=== PATIENT | female | born 1990 ===

== ENCOUNTER 2021-02-23 08:45 | Outpatient (REF) | payer OTHER, SELFPAY ==
--- NOTE | ~2021-02-23 | XR_ITS ---
EXAMINATION: XR CHEST CLINICAL INFORMATION: Encounter for preprocedural examination. COMPARISON: None TECHNIQUE: 2 views of the chest were obtained. FINDINGS: The lungs are well expanded. There is no focal consolidation, edema, or effusion. No pneumothorax. The cardiomediastinal silhouette is within normal limits. No acute osseous abnormality. There is a rounded 2.3 cm density in the left upper quadrant of the abdomen, with posterior positioning. This corresponds to the previously seen renal calculus. XR/XR chest 2V IMPRESSION: Clear lungs. Prominent left renal calculus.
--- NOTE | 2021-02-23 08:53 | ECG_ITS ---
Test Reason : PRE OP Blood Pressure : / mmHG Vent. Rate : 131 BPM Atrial Rate : 131 BPM P-R Int : 150 ms QRS Dur : 070 ms QT Int : 282 ms P-R-T Axes : 060 027 030 degrees QTc Int : 416 ms Sinus tachycardia Nonspecific ST abnormality Abnormal ECG Compared to previous EKG of 24-Jun-2012 No significant changes seen Referred By: Deepa Booth Electronically Signed By:MICHELLE CASTANON MD
[2021-02-23 09:46] LABS: MANUAL DIFF FLAG NO
[2021-02-23 09:53] LABS: Basophils Absolute Auto 0.1 X10*3/uL (0.0-0.2); Basophils Percent Auto 0.4 % (0-2); Eosinophils Absolute Auto 0.1 X10*3/uL (0.0-0.4); Eosinophils Percent Auto 0.4 % (0-4); Hematocrit 39.3 % (37-47); Imm Gran Abs Auto 0.07 X10*3/uL (0.00-0.03); Imm Gran Pct Auto 0.5 % (0.0-0.4); Lymphocytes Absolute Auto 1.6 X10*3/uL (1.2-4.9); Lymphocytes Percent Auto 11.8 % (20-40); Mean Corpuscular HGB Conc 33.1 g/dl (31.0-35.0); Mean Corpuscular Hemoglobin 30.4 pg (27.0-33.0); Mean Corpuscular Volume 91.8 fL (80-98); Mean Platelet Volume 9.5 fL (9.4-12.3); Monocytes Absolute Auto 0.6 X10*3/uL (0.1-1.2); Monocytes Percent Auto 4.2 % (2-11); Neutrophils Absolute Auto 11.1 X10*3/uL (2.0-8.3); Neutrophils Percent Auto 82.7 % (45-73); Platelet Count 391 X10*3/uL (160-400); Red Blood Count 4.28 X10*6/uL (4.20-5.50); Red Cell Distribution Width 12.2 % (11.0-16.0); White Blood Count 13.4 X10*3/uL (4.8-10.8)
[2021-02-23 09:59] LABS: INTERNATIONAL NORM RATIO 1.1 (0.9-1.1); Prothrombin Time 12.8 SEC (9.9-13.0)
[2021-02-23 10:02] LABS: Partial Thromboplastin Time 39.4 SEC (24.1-38.0)
[2021-02-23 10:04] LABS: Glucose Urine UA NEG (NEG); Leukocyte Esterase Urine TRACE (NEG); Nitrite Urine POS (NEG); UACC Culture Trigger YES; Urine Blood 1+ (NEG); Urine Ketones NEG (NEG); Urine Protein TRACE MG/DL (NEG-TRACE)
[2021-02-23 10:06] LABS: Appearance Urine HAZY; Color Urine YELLOW
[2021-02-23 10:10] LABS: Amorphous Sediment Urine 2+ /LPF; Bacteria Urine 1+ /LPF; RBC Urine 0-2 /HPF (0); Squamous Epithelial Cell Urine 2+ /LPF
[2021-02-23 10:28] LABS: Alanine Aminotransferase 8 U/L (0-31); Albumin Level 4.5 g/dL (3.5-5.0); Alkaline Phosphatase 69 U/L (39-117); Anion Gap 12 (12-20); Aspartate Amino Transferase 14 U/L (5-31); Bilirubin Total 1.1 mg/dL (0.0-1.0); Blood Urea Nitrogen 10 mg/dL (9-16); Calcium 9.8 mg/dL (8.4-10.2); Carbon Dioxide 26 mmol/L (22-29); Chloride 106 mmol/L (96-108); Estimated Glomerular Filt Rate > 60; Glucose Fasting 97 mg/dL (60-99); Potassium 4.3 mmol/L (3.3-5.1); Sodium 140 mmol/L (135-145); Total Protein 7.6 g/dL (6.5-8.0)
[2021-02-23 10:29] LABS: HCG Quantitative < 2 mIU/mL
== END 2021-02-23 08:46 | disposition home or self-care (01) ==
LOC: HO.LAB 08:45
PROVIDERS: PCP Internal Medicine; Visit Provider Internal Medicine
DX: Z01.818 Encounter for other preprocedural examination (principal); R30.0 Dysuria; N20.0 Calculus of kidney
CPT/HCPCS: 36415; 71046; 80053; 81001; 81003; 84702; 85025; 85610; 85730; 87086; 93005

== ENCOUNTER 2023-03-27 09:58 | Outpatient (REF) | payer OTHER, SELFPAY ==
[2023-03-27 11:18] LABS: Alanine Aminotransferase 16 U/L (0-31); Alkaline Phosphatase 76 U/L (39-117); Anion Gap 10 (12-20); Aspartate Amino Transferase 19 U/L (5-31); Bilirubin Total 0.7 mg/dL (0.0-1.0); Blood Urea Nitrogen 7 mg/dL (9-16); Calcium 9.4 mg/dL (8.4-10.2); Carbon Dioxide 27 mmol/L (22-29); Chloride 105 mmol/L (96-108); Cholesterol 180 mg/dL (<200); Estimated Glomerular Filt Rate > 60; Glucose Fasting 90 mg/dL (60-99); HDL Cholesterol 56 mg/dL (>40); LDL Cholesterol Calculated 105 mg/dL (<100); Potassium 3.8 mmol/L (3.3-5.1); Sodium 138 mmol/L (135-145); Total Protein 7.3 g/dL (6.5-8.0); Triglycerides 99 mg/dL (<150)
== END 2023-03-27 09:59 | disposition home or self-care (01) ==
LOC: HO.LAB 09:58
PROVIDERS: PCP Internal Medicine; Visit Provider Internal Medicine
DX: Z00.00 Encounter for general adult medical examination without abnormal findings (principal)
CPT/HCPCS: 36415; 80053; 80061

== ENCOUNTER 2023-07-05 10:53 | Outpatient (REF) | payer OTHER, SELFPAY ==
[2023-07-05 12:24] LABS: Appearance Urine Turbid; Color Urine Yellow; Glucose Urine UA Negative (Negative); Leukocyte Esterase Urine Large (3+) (Negative); Nitrite Urine Positive (Negative); PH 6.5 (5.0-9.0); UMIC TRIGGER UACC YES; Urine Blood Moderate (2+) (Negative); Urine Ketones Negative (Negative); Urine Protein 30 (1+) mg/dL (Neg-Trace)
[2023-07-05 12:43] LABS: Bacteria Urine 3+ (None Seen); Hyaline Casts Urine 0-2 /LPF (0-2); RBC Urine 0-2 /HPF (0-2); UACC Culture Trigger YES; WBC Urine 21-50 /HPF (0-5)
== END 2023-07-05 10:54 | disposition home or self-care (01) ==
LOC: HO.LAB 10:53
PROVIDERS: PCP Internal Medicine; Visit Provider Internal Medicine
DX: R39.9 Unspecified symptoms and signs involving the genitourinary system (principal)
CPT/HCPCS: 81001; 87086; 87088; 87186

== ENCOUNTER 2023-07-10 14:56 | Outpatient (AMB) | payer OTHER, SELFPAY ==
[2023-07-10 14:59] VITALS: BP 116/70; PULSE 123; TEMP 37.8; O2SAT 100; BMI 22.8
--- NOTE | 2023-07-10 14:59 | AM.OFFWIN_ITS ---
Intake Vital Signs 07/10/23 14:59 Height 4 ft 11 in Weight 51.256 kg BMI 22.8 BP 116/70 Blood Pressure Location Lt brachial Position Sitting Pulse 123 H Temp 100.0 F Temp Source Oral Pulse Oximetry (%) 100 Intake Visit Reasons: EP Lft rib pain radiates to back chills Intake Note: pt is here today for lft rib pain radiates to back, chills started 2 week ago staurday had a fever Patient Tobacco Use Status: Never used Tobacco Allergies kiwi [KIWI] Allergy (Intermediate, Verified 07/10/23 15:06) THROAT ITCHING Do you need a note to return to daycare/school/sports/work: Yes HPI HPI Comments History of Present Illness Details [id number] 32-year-old female presents with complai nts of left-sided flank pain, fevers, cloudy urine with sediment, ongoing for the past 2 weeks, currently finishing up Macrobid, has a few doses left, but despite this symptoms are not improving. Reports fevers home T-max of a 100 degrees. Initially here patient had a temperature of 97.4 degrees oral temperature however 100.0 degrees F. Left-sided CVA tenderness tachycardia ( 120s) febrile. History and physical exam concerning for possible pyelonephritis versus obstructing uropathy versus kidney stone versus UTI. Unlikely acute abdomen. Culture w/ s. aureus Plan at this time urine. Patient will likely need IV antibiotics she [facility] Medical History Pre-op evaluation Renal calculi Surgical History Tubal ligation status History of Family History Mother No problems noted. Father No problems noted. Social History Housing: Apartment Alcohol intake: never Patient Tobacco Use Status: Never used Tobacco e-Cigarette/Vaping Use: Never Used Second Hand Smoke Exposure: No service: No Current occupational status: unemployed Cognitive needs: No Hearing needs: No Vision needs: No Review of Systems Const Details: Constitutional : No Weight loss, No Fever, No Chills, No Fatigue, No Malaise ENT/Mouth : No sore throat, No Rhinorrhea Eyes: No Eye Pain, No Swelling, No Redness Cardiovascular : No Chest Pain, No SOB, No Dyspnea on Exertion, No Orthopnea, No Edema, No Palpitations Respiratory : No Cough, No Sputum, No Wheezing Gastrointestinal : No Nausea, No Vomiting, No Diarrhea, No Constipation, No abdominal Pain, No Hematochezia, No Melena Genitourinary : No Dysuria, No Urinary Frequency, No Hematuria, Musculoskeletal : No joint pain, No Myalgias, No Joint Swelling, + flank pain Skin : No Skin Lesions, No rash Neuro : No Weakness, No Numbness, No Dizziness, No Headache Psych : No Anxiety/Panic, No Depression All other systems reviewed and are negative All systems reviewed & are unremarkable except as noted in HPI and below Physical Exam Vital Signs: Last Vital Signs Temp 97.4 F 07/10/23 14:59 Pulse 123 H 07/10/23 14:59 BP 116/70 07/10/23 14:59 Pulse Ox 100 07/10/23 14:59 BMI result Body Mass Index 22.8 Repeat temp 100.0F tacycardic 123 Appearance: Alert.? Oriented X3.? No acute distress.? Head: Normocephalic, atraumatic, no step-offs or deformities Eyes: Pupils equal, round and reactive to light.? ENT: Pharynx normal.? Neck: Normal inspection.? Neck supple.? CVS: + tachycardia .? Pulses normal.? Respiratory: No respiratory distress.? Breath sounds normal.? Abdomen: Soft and nontender.? Skin: Skin warm and dry.? Normal skin color.? Normal skin turgor.? Extremities: No lower extremity edema.? No calf ttp. 5/5 strength to bilateral upper and lower extremities Back: No midline tenderness, no C-spine tenderness, full range of motion, + left sided CVA tenderness Neuro: Oriented X 3.? No motor deficit.? No sensory deficit. CN 2-12 intact Results AMB Urinalysis, Automated UA Leukoctes 500 Isaías/uL Last Edit by Zeke Hernandez CMA on 07/10/23 15:3 3 UA Nitrite Negative Last Edit by Zeke Hernandez CMA on 07/10/23 15:33 UA Urobilinogen 0.2 mg/dL Last Edit by Zeke Hernandez CMA on 07/10/23 15 :33 UA Protein 0 mg/dL Last Edit by Zeke Hernandez CMA on 07/10/23 15:33 UA pH 6.0 Last Edit by Zeke Hernandez CMA on 07/10/23 15:33 UA Blood 25 Daniel/uL Last Edit by Zeke Hernandez CMA on 07/10/23 15:33 UA Specific [place] 1.005 Last Edit by Zeke Hernandez CMA on 07/10/23 15:33 UA Ketone Negative Last Edit by Zeke Hernandez CMA on 07/10/23 15:33 UA Bilirubin 0 mg/dL Last Edit by Zeke Hernandze CMA on 07/10/23 15:33 UA Glucose 0 mg/dL Last Edit by Zeke Hernandez CMA on 07/10/23 15:33 Results Reviewed Results Reviewed: Laboratory Last Values Urine pH (Auto) 6.0 07/10/23 15:33 Specific [place] (Auto) 1.005 07/10/23 15:33 Urine Protein (Auto) 0 mg/dL 07/10/23 15:33 Glucose (UA)(Auto) 0 mg/dL 07/10/23 15:33 Urine Ketones (Auto) Negative 07/10/23 15:33 Urine Blood (Auto) 25 Daniel/uL 07/10/23 15:33 Urine Nitrite (Auto) Negative 07/10/23 15:33 Urine Bilirubin (Auto) 0 mg/dL 07/10/23 15:33 Urine Urobilinogen (Auto) 0.2 mg/dL 07/10/23 15:33 Leukocyte Esterase (Auto) 500 Isaías/uL 07/10/23 15:33 Assessment & Plan Assessment & Plan (1) Pyelonephritis: Code(s): N12 - Tubulo-interstitial nephritis, not specified as acute or chronic Plan [facility] [place] triage provider Jasmine avery Orders: Orders AMB Urinalysis Automated Today Z13.9 - Encounter for screening, unspecified Coding Level of Care Code Est Pt Level 3 (49230) Diagnoses Pyelonephritis N12
== END 2023-07-10 15:54 | disposition home or self-care (01) ==
PROVIDERS: PCP Internal Medicine; Visit Provider Physician Assistant
DX: N12 Tubulo-interstitial nephritis, not specified as acute or chronic (principal); Z13.9 Encounter for screening, unspecified
CPT/HCPCS: 81003; 99213

== ENCOUNTER 2023-07-10 16:29 | Emergency (ER) | payer OTHER, SELFPAY ==
--- NOTE | ~2023-07-10 | CT_ITS ---
EXAMINATION: CT ABDOMEN AND PELVIS WITHOUT CONTRAST CLINICAL INFORMATION: Left flank pain COMPARISON: Previous CT of the abdomen and pelvis from 2012 TECHNIQUE: Multidetector volumetric imaging was performed from the superior aspect of the liver through the pubic symphysis. Sagittal and coronal reformatted images were obtained on the technologist's workstation. This CT examination was performed using dose optimization techniques as appropriate, variously including the following: *Automated exposure control *Adjustment of mA and/or kV according to patient size (this includes techniques or standardized protocols for targeted exams where dose is matched to indication/reason for exam; i.e. extremities or head) *Use of iterative reconstruction technique DLP: 325 mGy-cm FINDINGS: LUNG BASES: The visualized lung bases are unremarkable. LIVER, GALLBLADDER, AND BILIARY TREE: The liver is normal in size, shape, and attenuation. No focal hepatic lesion or biliary ductal dilatation is present. The gallbladder is unremarkable with no evidence of radiopaque gallstones, gallbladder wall thickening, or obvious pericholecystic inflammatory changes. PANCREAS: Unremarkable. SPLEEN: Unremarkable. ADRENAL GLANDS: Unremarkable. KIDNEYS AND URETERS: There is a 3 x 4 cm laminated stone in the central left kidney moderate left hydronephrosis. There are small stones bilateral lower poles. There is mild stranding of the left perinephric fat. Probably due to backflow of urine and obstruction. Differential would be infection. BLADDER: Unremarkable. GASTROINTESTINAL TRACT: The small and large bowel are unremarkable. The appendix is not seen. The stomach is unremarkable.. ABDOMINAL WALL: No significant hernia is appreciated. LYMPH NODES: Normal. VASCULAR: Unremarkable. PELVIC VISCERA: Uterus and ovaries are unremarkable. There is trace fluid in the pelvis. OSSEOUS STRUCTURES: Unremarkable. CT/CT abdomen pelvis wo IV con IMPRESSION: Large staghorn stone in the left renal pelvis and moderate left hydronephrosis. Mild left perinephric fat stranding. This may represent backflow of urine secondary to obstruction. Differential would include infection. Tiny bilateral nonobstructing lower pole renal stones. Fleischner guidelines were followed.
--- NOTE | 2023-07-10 16:56 | ED_ITS ---
HPI - General Adult General Chief complaint: General Medical Stated complaint: lower back and abd pain sent from urgent care Time Seen by Provider: 07/10/23 17:11 Source: patient Mode of arrival: ambulatory Limitations: no limitations History of Present Illness HPI narrative: Patient is a 32-year-old female with history of renal calculi presenting to the emergency department from urgent care with ongoing left flank pain and left lower quadrant abdominal pain, fever, cloudy urine for the past 2 weeks. Tmax of 100 at home. Patient was recently treated for UTI with Macrobid which she reports she has been taking as prescribed. States symptoms feel similar to previous renal calculi. Denies nausea, vomiting, diarrhea. MD complaint: flank pain, fever Onset (ago): week(s) Location: abdomen and left (flank) Severity: severe Severity scale (1-10): 7 Quality: sharp Pain Consistency: colicky Relieving factors: none Exacerbating factors: none Associated symptoms: fever/chills Treatments prior to arrival: other (macrobid) Related Data Previous Rx's Medication Instructions Recorded mirtazapine 15 mg tablet (Remeron) 15 mg PO BEDTIME 90 days #90 tabs 06/25/23 tamsulosin 0.4 mg capsule 0.4 mg PO DAILY 7 days #7 caps 07/01/23 nitrofurantoin macrocrystal 100 mg 100 mg PO BID 7 days #14 caps 07/06/23 capsule sulfamethoxazole 800 1 tab PO BID 14 days #28 tabs 07/10/23 mg-trimethoprim 160 mg tablet (Bactrim DS) Allergies Allergy/AdvReac Type Severity Reaction Status Date / Time kiwi [KIWI] Allergy Intermediate THROAT Verified 07/10/23 17:01 ITCHING Review of Systems 2 Review of Systems: As per HPI. Yes all other systems are reviewed and are negative Constitutional: Constitutional: Reports as per HPI [facility] Past Medical History Medical History Pre-op evaluation Renal calculi Surgical History Tubal ligation status History of Family History Family History Mother No problems noted. Father No problems noted. Social History Social History Housing: Apartment Alcohol intake: never Patient Tobacco Use Status: Never used Tobacco Smoked in Last 30 Days: No e-Cigarette/Vaping Use: Never Used Second Hand Smoke Exposure: No Use of substances other than those prescribed or required for medical reasons: No Advance Directives: No Advance Directives Information Provided: No Patient : No service: No Current occupational status: unemployed Cognitive needs: No Hearing needs: No Vision needs: No Physical Exam ED Vital Signs: Vital Signs - 24 hr 07/10/23 16:57 07/10/23 19:22 07/10/23 21:09 Temperature 99.3 F 99.1 F 99.3 F Pulse Rate 129 H 125 H 120 H Respiratory Rate 18 16 18 Blood Pressure 156/88 H 139/82 140/80 H Pulse Oximetry 100 100 100 Oxygen Delivery Method Room Air Room Air Room Air 07/10/23 21:56 Temperature Pulse Rate 104 H Respiratory Rate Blood Pressure Pulse Oximetry Oxygen Delivery Method BMI result Body Mass Index 634.0 Vital signs have been reviewed and appear to be correct. Blood pressure elevated. Heart rate tachycardic. Respiratory rate normal. Temperature normal. Oxygen saturation normal. Const General: cooperative, healthy appearing and no acute distress Orientation/consciousness: oriented to person, oriented to place, oriented to time and patient oriented x3 Limitations: no limitations HENMT Head: Yes normocephalic and Yes atraumatic Ears: external ears normal General nose exam: Normal external nose present Face and sinus: Yes face symmetric Mouth: oropharynx normal and moist mucous membranes Throat: Yes uvula midline Eyes Pupils: Equal, round and reactive pupils present Neck Neck: Yes normal visual inspection and Yes supple Resp Effort & Inspection: normal respiratory effort and able to speak in complete sentences Auscultation: clear to auscultation bilaterally Cardio Rate: regular rate Rhythm: regular rhythm Heart sounds: S1 normal heart sound present and S2 normal heart sound present GI Palpation (GI): Soft to palpation, Tenderness to palpation present (GI) in the LLQ, no guarding and No Rebound tenderness present Auscultation: normoactive bowel sounds General: Yes CVA tenderness on the left Back/Spine/Pelvis Back: CVA tenderness Skin General skin exam: elasticity normal and turgor normal Neuro General: oriented to person, oriented to place, oriented to time, patient oriented x3, moves all extremities, no focal motor deficits and CN's II-XI intact bilaterally Cranial nerves: Yes Equal, round and reactive pupils present Cognition (Neuro): normal cognition Extrem General: Yes full ROM, Yes no pedal edema and Yes no calf tenderness Psych Mental Status: mental status grossly normal Affect: normal affect Thought process: Normal thought process present Course Course Course Narrative: This is an RME: Additional HPI, ROS, PE not included below will be deferred to primary provider. 32-year-old female presents with complaints of left-sided flank pain, fevers, cloudy urine with sediment, ongoing for the past 2 weeks, currently finishing up Macrobid, has a few doses left, but despite this symptoms are not improving. Reports fevers home T-max of a 100 degrees. Left-sided CVA tenderness and tachycardic in the 120s. Patient brought back to the main emergency department. Temperature 99.3? however patient has a mint in her mouth, unsure of accuracy of this. Received expect regarding patient concern for pyelonephritis, obstructive uropathy versus kidney stones versus UTI, Plan: Labs, blood cultures, lactic Medications Administered Discontinued Medications Generic Name Dose Route Start Last Admin Trade Name Freq PRN Reason Stop Dose Admin Sodium Chloride 1,000 mls @ 999 mls/hr 07/10/23 17:15 07/10/23 19:44 Ns IV 07/10/23 18:15 Infused .Q1H1M SHAILESH Infusion Ketorolac Tromethamine 15 mg 07/10/23 19:01 07/10/23 19:44 Ketorolac Tromethamine 15 Mg/Ml Vial IVPUSH 07/10/23 19:02 15 mg ONCE ONE Administration Medical Decision Making Medical Decision Making [facility] [place] Narrative: 17:15 Patient is a 32-year-old female with history of renal calculi presenting to the emergency department from urgent care with ongoing left flank pain and left lower quadrant abdominal pain, fever, cloudy urine for the past 2 weeks. On exam patient is awake, A+Ox3, tachycardic, BP elevated, afebrile, normal neurological exam without focal deficits, physical exam findings as above. Patient attributing her tachycardia to anxiety about being in the hospital, however, this raises concern for infection. Given reported symptoms and physical exam findings, initial differential includes pyelonephritis, renal/ureteral calculi, obstructive uropathy. Do not suspect sepsis at this time. Labs notable for mild leukocytosis, mild anemia, normal lactic. No evidence of LAUREN. CT notable for large staghorn stone in left renal pelvis with moderate left hydronephrosis, mild left perinephric fat stranding. My interpretation is in agreement with the radiologist's interpretation. Results discussed with patient and admission offered which patient politely declined. Will treat for pyelonephritis with Bactrim DS, as most recent urine culture from 07/05 was positive for staph aureus susceptible to Bactrim. Strict return precautions discussed at bedside. Will refer to urology for further management of calculi. Patient verbalized understanding of and agreement with plan. Differential Diagnosis Differential Diagnoses: The differential diagnosis associated with the presentation includes As per [facility] [place]. Admission/Observation Consideration of admission/observation: Escalation of care including admission/observation considered Offered, patient declined Lab Data [facility] [place] Lab Attestation statement: I reviewed the patient's lab results. As per [facility] [place] 07/10/23 17:28 07/10/23 17:28 Labs: Lab Results 07/10/23 07/10/23 Range/Units 17:28 17:44 WBC 13.2 H (4.8-10.8) X10*3/uL RBC 4.03 L (4.20-5.50) X10*6/uL Hgb 11.8 L (12.0-16.0) g/dl Hct 35.5 L (37.0-47.0) % MCV 88.1 (80.0-98.0) fL MCH 29.3 (27.0-33.0) pg MCHC 33.2 (31.0-35.0) g/dl RDW 11.7 (11.0-16.0) % Plt Count 559 H (160-400) X10*3/uL MPV 9.2 L (9.4-12.3) fL Immature Gran % (Auto) 1.0 H (0.0-0.4) % Neut % (Auto) 82.5 H (45-73) % Lymph % (Auto) 11.7 L (20-40) % [place] % (Auto) 3.9 (2-11) % Eos % (Auto) 0.4 (0-4) % Baso % (Auto) 0.5 (0-2) % Lymph # (Auto) 1.5 (1.2-4.9) X10*3/uL [place] # (Auto) 0.5 (0.1-1.2) X10*3/uL Eos # (Auto) 0.1 (0.0-0.4) X10*3/uL Baso # (Auto) 0.1 (0.0-0.2) X10*3/uL Abs Immat Gran (auto) 0.13 H (0.00-0.03) X10*3/uL Absolute Neuts (auto) 10.9 H (2.0-8.3) x10*3/uL Absolute Nucleated RBC 0.000 (0.0-0.012) X10*3/uL Nucleated RBC % (auto) 0.0 (0.0-0.2) /100WBC Sodium 138 (135-145) mmol/L Potassium 3.7 (3.3-5.1) mmol/L Chloride 105 (96-108) mmol/L Carbon Dioxide 25 (22-29) mmol/L Anion Gap 12 (12-20) BUN 7 L (9-16) mg/dL Creatinine 0.71 (0.5-1.4) mg/dL Estim Creat Clear Calc -36.5 Estimated GFR > 60 Random Glucose 101 (60-115) mg/dL Lactic Acid 1.0 (0.5-2.0) mmol/L Calcium 9.8 (8.4-10.2) mg/dL Total Bilirubin 0.5 (0.0-1.0) mg/dL Direct Bilirubin 0.2 (0.0-0.5) mg/dL AST 17 (5-31) U/L ALT 18 (0-31) U/L Alkaline Phosphatase 93 (39-117) U/L Total Protein 8.9 H (6.5-8.0) g/dL Albumin 4.3 (3.5-5.0) g/dL Lipase 15 (8-78) U/L Beta HCG, Quant < 2 mIU/mL Urine Color Yellow Urine Appearance Clear Urine pH 6.5 (5.0-9.0) Ur Specific [place] <= 1.005 (1.005-1.025) Urine Protein Negative (Neg-Trace) mg/dL Urine Glucose (UA) Negative (Negative) mg/dL Urine Ketones Negative (Negative) mg/dL Urine Blood Small (1+) H (Negative) Urine Nitrite Negative (Negative) Ur Leukocyte Esterase Large (3+) H (Negative) Urine RBC 0-2 (0-2) /HPF Urine WBC 0-5 (0-5) /HPF Ur Squamous Epith Cells 0-2 (0-2) /HPF Urine Bacteria None Seen (None Seen) Hyaline Casts 0-2 (0-2) /LPF Independent Interpretation I performed an independent interpretation of an: CT Scan Interpretation: left stone in left renal pelvis with moderate left hydronephrosis and mild perinephric stranding Radiology Impression Discussion of test interpretation with radiology: I have reviewed the radiologist's reading. Radiologist Impression: CT/CT abdomen pelvis wo IV con IMPRESSION: Large staghorn stone in the left renal pelvis and moderate left hydronephrosis. Mild left perinephric fat stranding. This may represent backflow of urine secondary to obstruction. Differential would include infection. Tiny bilateral nonobstructing lower pole renal stones. External Record Review External record reviewed: Inpatient record, Office record and Outpatient record Prescription Management I considered prescription management with: Antibiotic Discharge Plan Discharge Clinical Impression: Pyelonephritis, Renal calculi Patient Disposition: Home, Self-Care Instructions: Kidney Stones (ED), Renal Colic (ED), Kidney Infection (ED) Additional Instructions: Usted fue evaluado en el departamento de emergencias por dolor en el flanco jeronimo. Pruitt tomograf?a computarizada mostr? evidencia de un c?lculo liliana en pruitt ri??n jeronimo. Est? recibiendo tratamiento por chris infecci?n renal con antibi?ticos; complete el tratamiento completo seg?n lo prescrito. Lo derivan a Urolog?a para un mayor tratamiento de jeff c?lculo renal. Llame a pruitt consultorio ma?callie por la ma?callie a primera hora para programar chris haresh esta semana. Regrese al departamento de emergencias si presenta un dolor que empeora, v?mitos persistentes, fiebre de 100,4? o m?s, incapacidad para orinar o cualquier otro s?ntoma preocupante. Prescriptions: New sulfamethoxazole-trimethoprim [Bactrim DS] 800-160 mg tablet 1 tab PO BID 14 Days Qty: 28 0RF No Action mirtazapine [Remeron] 15 mg tablet 15 mg PO BEDTIME 90 Days Qty: 90 0RF tamsulosin 0.4 mg capsule 0.4 mg PO DAILY 7 Days Qty: 7 0RF nitrofurantoin macrocrystal 100 mg capsule 100 mg PO BID 7 Days Qty: 14 0RF Rx Instructions: must administer with a meal/food Referrals: [facility] [place] [facility] [Provider Group] Print Language: Brazilian
[2023-07-10 16:57] VITALS: BP 156/88; PULSE 129; RESP 18; TEMP 37.4; O2SAT 100; BMI 634.0
[2023-07-10 17:40] LABS: MANUAL DIFF FLAG NO
[2023-07-10] MEDS: 0.9 % Sodium Chloride 1,000 ML 999 ML IV (17:42)
[2023-07-10 17:54] LABS: Appearance Urine Clear; Color Urine Yellow; Glucose Urine UA Negative (Negative); Leukocyte Esterase Urine Large (3+) (Negative); Nitrite Urine Negative (Negative); PH 6.5 (5.0-9.0); Specific Gravity - Urine <= 1.005 (1.005-1.025); UMIC TRIGGER UACC YES; Urine Blood Small (1+) (Negative); Urine Ketones Negative (Negative); Urine Protein Negative (Neg-Trace)
[2023-07-10 17:59] LABS: Basophils Absolute Auto 0.1 X10*3/uL (0.0-0.2); Basophils Percent Auto 0.5 % (0-2); Eosinophils Absolute Auto 0.1 X10*3/uL (0.0-0.4); Eosinophils Percent Auto 0.4 % (0-4); Hematocrit 35.5 % (37.0-47.0); Hemoglobin 11.8 g/dl (12.0-16.0); Imm Gran Abs Auto 0.13 X10*3/uL (0.00-0.03); Lymphocytes Absolute Auto 1.5 X10*3/uL (1.2-4.9); Lymphocytes Percent Auto 11.7 % (20-40); Mean Corpuscular HGB Conc 33.2 g/dl (31.0-35.0); Mean Corpuscular Hemoglobin 29.3 pg (27.0-33.0); Mean Corpuscular Volume 88.1 fL (80.0-98.0); Mean Platelet Volume 9.2 fL (9.4-12.3); Monocytes Absolute Auto 0.5 X10*3/uL (0.1-1.2); Monocytes Percent Auto 3.9 % (2-11); Neutrophils Absolute Auto 10.9 x10*3/uL (2.0-8.3); Neutrophils Percent Auto 82.5 % (45-73); Platelet Count 559 X10*3/uL (160-400); Red Blood Count 4.03 X10*6/uL (4.20-5.50); Red Cell Distribution Width 11.7 % (11.0-16.0); White Blood Count 13.2 X10*3/uL (4.8-10.8)
[2023-07-10 18:25] LABS: Bacteria Urine None Seen (None Seen); Hyaline Casts Urine 0-2 /LPF (0-2); RBC Urine 0-2 /HPF (0-2); Squamous Epithelial Cell Urine 0-2 /HPF (0-2); UACC Culture Trigger YES; WBC Urine 0-5 /HPF (0-5)
[2023-07-10 18:26] LABS: Alanine Aminotransferase 18 U/L (0-31); Albumin Level 4.3 g/dL (3.5-5.0); Alkaline Phosphatase 93 U/L (39-117); Anion Gap 12 (12-20); Aspartate Amino Transferase 17 U/L (5-31); Bilirubin Direct 0.2 mg/dL (0.0-0.5); Bilirubin Total 0.5 mg/dL (0.0-1.0); Blood Urea Nitrogen 7 mg/dL (9-16); Calcium 9.8 mg/dL (8.4-10.2); Carbon Dioxide 25 mmol/L (22-29); Chloride 105 mmol/L (96-108); Creatinine Clr Calc Pharmacy -36.5; Estimated Glomerular Filt Rate > 60; Glucose Random 101 mg/dL (60-115); Lipase 15 U/L (8-78); Potassium 3.7 mmol/L (3.3-5.1); Sodium 138 mmol/L (135-145); Total Protein 8.9 g/dL (6.5-8.0)
[2023-07-10 18:29] LABS: HCG Quantitative < 2 mIU/mL
[2023-07-10 19:22] VITALS: BP 139/82; PULSE 125; RESP 16; TEMP 37.3; O2SAT 100
--- NOTE | 2023-07-10 19:33 | MHC.EDTECH ---
This tech resumed care at 1900. PT states she is having some pain. PT vitals are taken. Tech notes elevated bp. LEO Perez is made aware of pulse, BP and pain levels.
[2023-07-10] MEDS: Ketorolac Tromethamine 15 MG/ML VIAL IVPUSH (19:44)
[2023-07-10 21:09] VITALS: BP 140/80; PULSE 120; RESP 18; TEMP 37.4; O2SAT 100
[2023-07-10 21:56] VITALS: PULSE 104
== END 2023-07-10 22:34 | disposition home or self-care (01) ==
PROVIDERS: Physician Assistant Medical; Emergency Provider Emergency Medicine; PCP Internal Medicine
DX: N13.6 Pyonephrosis (principal)
CPT/HCPCS: 36415; 74176; 80048; 80076; 81001; 83605; 83690; 84702; 85025; 87040; 87086; 96361; 96374; 99284; J1885

== ENCOUNTER 2023-07-18 10:54 | Outpatient (AMB) | payer OTHER, SELFPAY ==
[2023-07-18 10:56] VITALS: BP 112/90; PULSE 114; O2SAT 99; BMI 21.6
--- NOTE | 2023-07-18 10:56 | A.OFFPC_ITS ---
Vital Signs 07/18/23 10:56 Height 4 ft 11 in Weight 107 lb 0.4 oz BMI 21.6 BP 112/90 H Blood Pressure Location Lt brachial Position Sitting Pulse 114 H Pulse Source Palpation Pulse Oximetry (%) 99 Oxygen Delivery Method Room Air Intake Visit Reasons: [facility] 07/10 kidney stone pain Intake Note: Patient is here to follow-up after a visit the emergency department at [facility] on 07/10/23 for kidney stones Clinical Director Required: No Allergies kiwi [KIWI] Allergy (Intermediate, Verified 07/18/23 11:13) THROAT ITCHING Medication List - Last Reconciled 07/18/23 by Manjula Coulter, [place] mirtazapine (Remeron) 15 mg PO BEDTIME 90 days sulfamethoxazole-trimethoprim 800-160 mg (Bactrim DS) 1 tab PO BID 14 days tamsulosin 0.4 mg PO DAILY 7 days Tobacco use date assessed: 07/18/23 [facility] 07/10 kidney stone pain HPI Details Patient is a 32-year-old female presents today to follow-up after [facility] visit 07/10/2023 due to low back pain. Patient of Dr. Veloz. Discharge diagnosis pyelonephritis, renal calculi. Per ED notes: Patient is a 32-year-old female with history of renal calculi presenting to the emergency department from urgent care with ongoing left flank pain and left lower quadrant abdominal pain, fever, cloudy urine for the past 2 weeks. On exam patient is awake, A+Ox3, tachycardic, BP elevated, afebrile, normal neurological exam without focal deficits, physical exam findings as above. Patient attributing her tachycardia to anxiety about being in the hospital, however, this raises concern for infection. Given reported symptoms and physical exam findings, initial differential includes pyelonephritis, re nal/ureteral calculi, obstructive uropathy. Do not suspect sepsis at this time. Labs notable for mild leukocytosis, mild anemia, normal lactic. No evidence of LAUREN. CT notable for large staghorn stone in left renal pelvis with moderate left hydronephrosis, mild left perinephric fat stranding. My interpretation is in agreement with the radiologist's interpretation. Results discussed with patient and admission offered which patient politely declined. Will treat for pyelonephritis with Bactrim DS, as most recent urine culture from 12/1 was positive for staph aureus susceptible to Bactrim. Strict return precautions discussed at bedside. Will refer to urology for further management of calculi. Patient verbalized understanding of and agreement with plan. Today, patient reports that she possibly passed a small kidney stone yesterday, reports very mild pain today in her left flank that radiates down to her left groin. She reports pain only when feels like stone is coming down. Reports that pain is improving. Currently on antibiotics. Encouraged patient to start tamsulosin that was sent by her PCP. Will place referral to Urology for an evaluation. Patient is a Czech-speaking and JENIFER Poe was helping with interpretation. [facility] Medical History Pre-op evaluation Renal calculi Surgical History Tubal ligation status History of Family History Mother No problems noted. Father No problems noted. Social History Housing: Apartment Alcohol intake: never Patient Tobacco Use Status: Never used Tobacco e-Cigarette/Vaping Use: Never Used Second Hand Smoke Exposure: No service: No Current occupational status: unemployed Cognitive needs: No Hearing needs: No Vision needs: No Questionnaire PHQ-9 Over the last 2 weeks, how often have you been bothered by any of the following problems? 1. Little interest or pleasure in doing things: not at all 2. Feeling down, depressed, or hopeless: not at all 3. Trouble falling or staying asleep, or sleeping too much: more than half the days 4. Feeling tired or having little energy: not at all 5. Poor appetite or overeating: not at all 6. Feeling bad about yourself - or that you are a failure or have let yourself or your family down: not at all 7. Trouble concentrating on things, such as reading the newspaper or watching television: not at all 8. Moving or speaking so slowly that other people could have noticed. Or the opposite - being so fidgety or restless that you have been moving around a lot more than usual: not at all 9. Thoughts that you would be better off or of hurting yourself in some way: not at all Total score: 2 Depression Screening Interpretation: Negative Depression Screening Done: Yes 96143 - PHQ-9 Billing: Yes Source: Developed by Drs. Fredy Newton, Thao Cali, Mak Shoemaker and colleagues, with an educational dinah from [employer]. Thrive Questionnaire Date Thrive assessed: 11/21/22 AUDIT C Alcohol Use Questionnaire (AUDIT-C) 1. How often do you have a drink containing alcohol?: Never 3. How often do you have six or more drinks on one occasion?: Never Total Score: 0 Score Reviewed/Action Taken: No MARLEY-7 AMB Questionnaire MARLEY-7 Date MARLEY - 7 assessed: 01/28/23 Source: Developed by Drs. Fredy Newton, Thao Cali, Mak Shoemaker and colleagues, with an educational dinah from [employer]. Review of Systems Const Denies body aches, Denies chills, Denies fever(s) and Denies headache(s) ENT Denies dizziness, Denies otalgia, Denies headache(s), Denies nasal discharge, Denies sinus pain and Denies sore throat Card Denies chest pain, Denies edema, Denies lightheadedness and Denies dyspnea Resp Denies cough, Denies dyspnea and Denies wheezing GI Denies constipation, Denies diarrhea, Denies nausea and Denies vomiting Denies hematuria, Denies dysuria and Reports flank pain Musc Denies myalgias Skin/Breast Denies rash Neuro Denies dizziness and Denies headache(s) Aller/Immun Denies wheezing Physical exam (Primary Care) Vital Signs: Last Vital Signs Pulse 114 H 07/18/23 10:56 BP 112/90 H 07/18/23 10:56 Pulse Ox 99 07/18/23 10:56 Oxygen Delivery Method Room Air 07/18/23 10:56 BMI result Body Mass Index 21.6 Tobacco/Smoking Status: Tobacco use Status Tobacco use date assessed 07/18/23 07/18/23 11:04 Patient Tobacco Use Status Never used Tobacco 07/18/23 11:04 e-Cigarette/Vaping Use Never Used 07/18/23 11:04 PHQ-9: PHQ-9 Score PHQ-9: Total score 2 07/18/23 11:26 Depression Screening Interpretation: Negative Thrive Assessment: Date of Thrive Assessment Date Thrive assessed 11/21/22 07/18/23 11:04 Const General: cooperative and no acute distress Orientation/consciousness: patient oriented x3 HENMT Head: Yes normocephalic and Yes atraumatic Face and sinus: Yes sinuses nontender Mouth: oropharynx normal and moist mucous membranes Throat: Yes posterior oropharynx normal Eyes General: appearance normal, both eyes and all related structures Neck Neck: Yes normal visual inspection, Yes full ROM and Yes no lymphadenopathy Thyroid: Thyroid normal Resp Effort & Inspection: normal respiratory effort and able to speak in complete sentences Auscultation: clear to auscultation bilaterally, no crackles, no rales, no rhonchi and no wheezes Cardio Rate: regular rate Rhythm: regular rhythm Heart sounds: S1 normal heart sound present and S2 normal heart sound present GI Palpation (GI): Soft to palpation, not firm, nontender, no guarding, not rigid and no hepatosplenomegaly Auscultation: normal bowel sounds General: No CVA tenderness Back/Spine/Pelvis Back: No CVA tenderness Skin General skin exam: no rashes or lesions noted Neuro General: patient oriented x3 Gait exam (Neuro): Normal gait present Extrem General: Yes full ROM and No edema Assessment and Plan Assessment & Plan (1) Renal calculi: Code(s): N20.0 - Calculus of kidney Plan: Continue Bactrim Start tamsulosin, this was sent by PCP Increase fluid consumption Urology referral Signs and symptoms reviewed when to notify provider go to the emergency department Patient agreed with the plan Orders: Referrals Urology Referral N20.0 - Calculus of kidney Coding Level of Care Code Est Pt Level 3 (67309) Diagnoses Renal calculi N20.0
== END 2023-07-18 11:32 | disposition home or self-care (01) ==
PROVIDERS: PCP Internal Medicine; Visit Provider Nurse Practitioner Family
DX: N20.0 Calculus of kidney (principal)
CPT/HCPCS: 99213

== ENCOUNTER 2023-07-25 09:47 | Outpatient (REF) | payer OTHER, SELFPAY | END 2023-07-25 09:48 | disposition home or self-care (01) | LOC: HO.LAB 09:47 | PROVIDERS: PCP Internal Medicine; Visit Provider Urology | DX: N39.0 Urinary tract infection, site not specified (principal); N20.0 Calculus of kidney; N32.81 Overactive bladder; Z79.899 Other long term (current) drug therapy | CPT/HCPCS: 81003; 87086; 99202 ==

== ENCOUNTER 2023-07-25 09:47 | Outpatient (AMB) | payer OTHER, SELFPAY ==
--- NOTE | 2023-07-25 09:50 | A.OFFVIS_ITS ---
Intake Intake Visit Reasons: Calculus of kidney Intake Note: NEW Patient presents today to established treatment for Calculus of Kidneys: Meds- Sulfa Allergies to Antibiotic- No Known Allergies Blood Thinner- None Subsea Engineer Required: Yes Subsea Engineer Language: Jordanian Information Interpreted: non-clinical & clinical Accompanied by: Other Relationship Allergies kiwi [KIWI] Allergy (Intermediate, Verified 07/25/23 09:52) THROAT ITCHING Medication List - Last Reconciled 07/25/23 by Derian Carrillo MD mirtazapine (Remeron) 15 mg PO BEDTIME 90 days sulfamethoxazole-trimethoprim 800-160 mg (Bactrim DS) 1 tab PO BID 14 days tamsulosin 0.4 mg PO DAILY 7 days HPI HPI Comments History of Present Illness Details Diana is a pleasant speaking Jordanian female. She is a patient of Dr. Booth. She seen for the following urologic conditions - staghorn calculus Jordanian translation provided by qualified medical sales Discussion regarding management options for the stone Given stone size primary approach would be PCNL Discussed placement of access PCN Procedure in operating room Given size of stone greater than 2 cm will require overnight stay and kidney drainage Staghorn calculus Recurrent presentation with left-sided flank pain and pyelonephritis Imaging - 07/27 CT 3 x 4 cm laminated stone in t he central left kidney moderate left hydronephrosis Organized procedure PFSH Medical History Pre-op evaluation Renal calculi Surgical History Tubal ligation status History of Family History Mother No problems noted. Father No problems noted. Social History Housing: Apartment Alcohol intake: never Patient Tobacco Use Status: Never used Tobacco e-Cigarette/Vaping Use: Never Used Second Hand Smoke Exposure: No service: No Current occupational status: unemployed Cognitive needs: No Hearing needs: No Vision needs: No Review of Systems Const Denies chills and Denies fever(s) Card Reports no additional complaints and Denies syncope Resp Denies cough GI Denies abdominal pain and Denies heartburn Reports as per HPI and Denies change in libido Neuro Denies syncope Psych Denies change in libido Endo Denies change in libido Physical Exam Const General: cooperative, healthy appearing, comfortable and no acute distress Orientation/consciousness: patient oriented x3 HEENT Face and sinus: Yes normal facial exam Mouth: moist mucous membranes Neck Neck: Yes normal visual inspection, Yes full ROM and Yes trachea midline Chest Chest palpation & inspection: normal inspection of the chest Resp Effort & Inspection: normal respiratory effort, able to speak in complete sentences and no respiratory distress GI Inspection: Yes normal to inspection Back/Spine/Pelvis Cervical Spine: normal cervical lordosis Thoracic/Lumbar Spine: thoracic and lumbar spine normal to inspection Skin General skin exam: no rashes or lesions noted Neuro General: patient oriented x3, gait normal, tone normal and moves all extremities Extrem General: Yes normal to inspection and Yes capillary refill normal Results AMB Urinalysis, Automated UA Leukoctes 500 Isaías/uL Last Edit by ROHAN Manzanares on 07/25/23 10:02 3+ Kurt Grider 07/25/23 10:02 UA Nitrite Negative Last Edit by ROHAN Manzanares on 07/25/23 10:02 UA Urobilinogen 0.2 mg/dL Last Edit by ROHAN Manzanares on 07/25/23 10:0 2 UA Protein 100 mg/dL Last Edit by ROHAN Manzanares on 07/25/23 10:02 2+ Kurt Grider 07/25/23 10:02 UA pH 6.0 Last Edit by ROHAN Manzanares on 07/25/23 10:02 UA Blood 80 Daniel/uL Last Edit by ROHAN Manzanares on 07/25/23 10:02 2+ Kurt Grider 07/25/23 10:02 UA Specific [place] 1.015 Last Edit by ROHAN Manzanares on 07/25/23 10: 02 UA Ketone Negative Last Edit by ROHAN Manzanares on 07/25/23 10:02 UA Bilirubin 0 mg/dL Last Edit by ROHAN Manzanares on 07/25/23 10:02 UA Glucose 0 mg/dL Last Edit by ROHAN Manzanares on 07/25/23 10:02 Results Reviewed Results Reviewed: Laboratory Last Values Urine pH (Auto) 6.0 07/25/23 10:00 Specific [place] (Auto) 1.015 07/25/23 10:00 Urine Protein (Auto) 100 mg/dL 07/25/23 10:00 Glucose (UA)(Auto) 0 mg/dL 07/25/23 10:00 Urine Ketones (Auto) Negative 07/25/23 10:00 Urine Blood (Auto) 80 Daniel/uL 07/25/23 10:00 Urine Nitrite (Auto) Negative 07/25/23 10:00 Urine Bilirubin (Auto) 0 mg/dL 07/25/23 10:00 Urine Urobilinogen (Auto) 0.2 mg/dL 07/25/23 10:00 Leukocyte Esterase (Auto) 500 Isaías/uL 07/25/23 10:00 Assessment & Plan Assessment & Plan (1) Staghorn calculus: Code(s): N20.0 - Calculus of kidney Plan Risks, benefits and alternatives to therapy were discussed. These include but are not limited to infection, bleeding, damage to local organs and tissues, need for further interventions. Anesthetic risks regarding cardiac arrhythmia, blood clots, and potential mortality were discussed. The patient understands the typical recovery time and the outpatient nature of the procedure. After consideration of these risks the patient gives full informed consent and they wish to move ahead with the procedure. Left PCNL Orders: Orders AMB Urinalysis Automated Today Z13.9 - Encounter for screening, unspecified Medications: New ciprofloxacin HCl Continue daily 250 mg PO DAILY 30 days 30 tabs 2RF N32.81 - Overactive bladder Patient Instructions: Imaging studies, laboratory and physical exam results were discussed and reviewed in detail. No major barriers to patient understanding were identified. An opportunity to ask questions regarding the treatment plan was provided. All questions were answered. The patient expressed understanding and agreement with the above treatment plan. The patient is aware they should contact our office by phone for worsening of their current condition or the appearance of new urologic symptoms. Compliance is encouraged with any medications and followup testing that is ordered. It is a privilege to participate in the urologic care of your patient. If you have any questions or concerns regarding treatment for the above conditions, or other urologic issues, please do not hesitate to contact me. The office telephone contact is [phone]. This note is constructed using voice recognition software. While every effort has been made to ensure accuracy sports therapist errors may have been included. Yours sincerely, Dr Derian Carrillo MD, [facility] - Urology Providers of Expert, Compassionate Care for the Genitourinary System Coding Level of Care Code New Pt Level 4 (34097) Diagnoses Staghorn calculus N20.0
== END 2023-07-25 10:47 | disposition home or self-care (01) ==
PROVIDERS: PCP Internal Medicine; Visit Provider Urology
DX: Z13.9 Encounter for screening, unspecified (principal); N20.0 Calculus of kidney
CPT/HCPCS: 99204

== ENCOUNTER 2023-09-27 09:17 | Outpatient (AMB) | payer OTHER, SELFPAY ==
--- NOTE | 2023-09-27 09:18 | A.OFFVIS_ITS ---
Intake Intake Visit Reasons: H&P PCNL (10/06) Intake Note: Patient presents today for a telehealth follow-up Meds- None Allergies to Antibiotic- No Known Allergies Blood Thinner- None Patient stated she is no longer taking Tamsulosin and Bactrim. Director Of Integrated Marketing Required: Yes Allergies kiwi [KIWI] Allergy (Intermediate, Verified 09/27/23 09:21) THROAT ITCHING Medication List - Last Reconciled 09/27/23 by Derian Carrillo MD ciprofloxacin HCl 250 mg PO DAILY 30 days mirtazapine (Remeron) 15 mg PO BEDTIME 90 days sulfamethoxazole-trimethoprim 800-160 mg (Bactrim DS) 1 tab PO BID 14 days tamsulosin 0.4 mg PO DAILY 7 days HPI HPI Comments History of Present Illness Details Diana is a pleasant speaking Welsh female. She is a patient of Dr. Booth. She seen for the following urologic conditions - staghorn calculus Telemedicine Evaluation 15 min Consultation [email or web address] Dennis Video attempted Welsh translation provided by qualified medical dermatologist Discussion regarding management options for the stone Given stone size primary approach would be PCNL Discussed placement of access PCN prior to procedure Procedure in operating room Given size of stone greater than 2 cm will require overnight stay and kidney drainage Staghorn calculus Recurrent presentation with left-sided flank pain and pyelonephritis Imaging - 07/27 CT 3 x 4 cm laminated stone in t he central left kidney moderate left hydronephrosis Organized procedure PFSH Medical History Pre-op evaluation Renal calculi Surgical History Tubal ligation status History of Family History Mother No problems noted. Father No problems noted. Social History (Reviewed 09/27/23 @ 09:24 MARIO Nguyen Housing: Apartment Alcohol intake: never Patient Tobacco Use Status: Never used Tobacco e-Cigarette/Vaping Use: Never Used Second Hand Smoke Exposure: No service: No Current occupational status: unemployed Cognitive needs: No Hearing needs: No Vision needs: No Review of Systems Const All systems reviewed & are unremarkable except as noted in HPI and below Reports no additional complaints Resp Reports no additional complaints GI Reports no additional complaints Reports as per HPI Musc Reports no additional complaints Physical Exam Telemedicine evaluation Appropriate responses Regular breathing rate and rhythm HEENT Head: Yes normal to inspection Ears: hearing grossly normal bilaterally Eyes General: appearance normal, both eyes and all related structures Neck Neck: Yes normal visual inspection Chest Chest palpation & inspection: normal inspection of the chest Resp Effort & Inspection: normal respiratory effort and able to speak in complete sentences Assessment & Plan Assessment & Plan (1) Staghorn calculus: Code(s): N20.0 - Calculus of kidney Plan Procedure as planned Risks, benefits and alternatives to therapy were discussed. These include but are not limited to infection, bleeding, damage to local organs and tissues, need for further interventions. Anesthetic risks regarding cardiac arrhythmia, blood clots, and potential mortality were discussed. The patient understands the typical recovery time and the outpatient nature of the procedure. After consideration of these risks the patient gives full informed consent and they wish to move ahead with the procedure. Left PCNL with ureteroscopy Medications: New diazepam Take medication 1 tab 2 hrs prior to procedure 5 mg PO BID PRN 5 tabs 0RF anxiety 1 day N20.0 - Calculus of kidney, R45.89 - Other symptoms and signs involving emotional state Patient Instructions: Imaging studies, laboratory and physical exam results were discussed and reviewed in detail. No major barriers to patient understanding were identified. An opportunity to ask questions regarding the treatment plan was provided. All questions were answered. The patient expressed understanding and agreement with the above treatment plan. The patient is aware they should contact our office by phone for worsening of their current condition or the appearance of new urologic symptoms. Compliance is encouraged with any medications and followup testing that is ordered. It is a privilege to participate in the urologic care of your patient. If you have any questions or concerns regarding treatment for the above conditions, or other urologic issues, please do not hesitate to contact me. The office telephone contact is [phone]. This note is constructed using voice recognition software. While every effort has been made to ensure accuracy division order analyst errors may have been included. Yours sincerely, Dr Derian Carrillo MD, [facility] - Urology Providers of Expert, Compassionate Care for the Genitourinary System Telehealth Telehealth Location of provider rendering services: practice address Location of patient: address on file Patient Identification confirmed using: Name, : Yes Telehealth method: video Patient verbally consented to treatment: Yes Patient verbally consented to billing insurance company: Yes Patient informed of any privacy concerns related to visit: Yes Coding Level of Care Code Tele Est Pt Level 4 (51996) Diagnoses Staghorn calculus N20.0
== END 2023-09-27 11:31 | disposition home or self-care (01) ==
LOC: HO.HUSH 09:18
PROVIDERS: PCP Internal Medicine; Visit Provider Urology
DX: N20.0 Calculus of kidney (principal)
CPT/HCPCS: 99214

== ENCOUNTER → 2023-09-27 09:17 | Outpatient (BNVA) | payer OTHER, SELFPAY | PROVIDERS: PCP Internal Medicine; Visit Provider Urology ==

== ENCOUNTER 2023-10-01 12:05 | Day surgery (SDC) | payer OTHER, SELFPAY ==
[2023-10-01] VITALS (7 sets, daily range): BP systolic 139–147; BP diastolic 85–97; PULSE 80–122; RESP 16; TEMP 36.9–37.6; O2SAT 99–100; BMI 22.2
--- NOTE | ~2023-10-01 | IR_ITS ---
Left nephroureterostomy tube placement CLINICAL INFORMATION: Staghorn calculus preoperative tube placement for stone removal Informed and written consent was obtained prior to the procedure. I was personally responsible for the administration of moderate sedation services, all requirements were followed, an independent trained observer was utilized. COMPARISON: CT scan of the abdomen dated 07/10/2023 TECHNIQUE: After the skin was prepped and draped in the usual fashion 1% Xylocaine was used for local anesthetic. An AccuStick needle was placed into a lower pole calyx under ultrasound guidance. A guidewire and catheter were placed over the top of the large calculus within the pelvis of the kidney and subsequently down and into the bladder. An Amplatz guidewire was advanced into the bladder. Attempts at passing the Afghan by 26 cm nephroureterostomy tube was not possible therefore a second stiff Glidewire was placed through a 7 Afghan sheath adjacent to the Amplatz wire. The ill-defined by 26 cm nephroureterostomy tube then passed into the bladder and was draped over the top of the calculus within the pelvis of the kidney. Both internal and external drainage established. IR/IR nephrostomy IMPRESSION: Large staghorn calculus within the left renal pelvis. Placement of an 8 Afghan by 26 cm in length nephroureterostomy tube.
[2023-10-01] MEDS: Acetaminophen 325 MG TABLET 650 MG PO (16:55)
[2023-10-01] MEDS: oxyCODONE HCl Immed Release 5 MG TABLET PO (16:55)
[2023-10-01] MEDS: ondansetron HCL 4 MG/2 ML VIAL IVPUSH (16:56)
== END 2023-10-01 19:01 | disposition home or self-care (01) ==
LOC: HO.SSS 12:07
PROVIDERS: Radiology Vascular & Interventional Radiology; PCP Internal Medicine; Visit Provider Urology
DX: N20.0 Calculus of kidney (principal); N32.2 Vesical fistula, not elsewhere classified; Z87.442 Personal history of urinary calculi; Z79.899 Other long term (current) drug therapy; Z98.51 Tubal ligation status
CPT/HCPCS: 50432; 87086; 99152; 99153; C1769; C1887; C1892; C1894; J2250; J2310; J2405; J3010; Q9967

== ENCOUNTER → 2023-10-01 14:11 | Outpatient (BNV) | payer OTHER, SELFPAY | PROVIDERS: PCP Internal Medicine; Visit Provider Radiology Vascular & Interventional Radiology | DX: N20.0 Calculus of kidney (principal) | CPT/HCPCS: 50432 ==

== ENCOUNTER 2023-10-07 05:42 | Day surgery (SDC) | payer OTHER, SELFPAY ==
[2023-10-03 09:23] VITALS: BMI 22.2
--- NOTE | 2023-10-04 09:56 | HO.ANESPROP2 ---
Documented by User: Iesha Johnson NP 10/04/23 09:59 HPI - Anesthesia Eval Consult details Narrative: 32yo F for Left Percutaneous Nephro-lithotomy with Ureteroscopy PMFSH Active Problems Active Problems: All Active Problems (Updated 07/25/23 @ 10:26 by Derian Carrillo MD) Staghorn calculus (Acute) Screening for cervical cancer (Acute) Physical exam (Acute) Insomnia (Acute) Neck pain (Acute) Pre-op evaluation (Acute) Renal calculi (Acute) Past Medical History Medical History Pre-op evaluation Renal calculi Family History Family History Mother No problems noted. Father No problems noted. Surgical History Surgical History (Updated 10/03/23 @ 09:16 by Rhoda Vanessa RN) History of surgery Tubal ligation status History of Social History Social History Housing: Apartment Alcohol intake: never Patient Tobacco Use Status: Never used Tobacco e-Cigarette/Vaping Use: Never Used Second Hand Smoke Exposure: No Use of substances other than those prescribed or required for medical reasons: No Are you DNR?: No Advance Directives: No Advance Directives Information Provided: Yes Advance Directives on File: No service: No Current occupational status: unemployed Cognitive needs: No Hearing needs: No Vision needs: No Meds Allergies Allergy/AdvReac Type Severity Reaction Status Date / Time kiwi [KIWI] Allergy Intermediate THROAT Verified 09/27/23 09:21 ITCHING Exam Height,Weight and Vital Signs: Height 4 ft 11 in Weight 49.895 kg Pertinent Lab Results Pertinent Lab Results: Laboratory Tests 07/10/23 17:28 WBC 13.2 H Hgb 11.8 L Hct 35.5 L Plt Count 559 H Sodium 138 Potassium 3.7 Chloride 105 Carbon Dioxide 25 BUN 7 L Creatinine 0.71 Narrative Narrative: IR nephrostomy 09/2023 IMPRESSION: Large staghorn calculus within the left renal pelvis. Placement of an 8 [place] by 26 cm in length nephroureterostomy tube. CT abdomen pelvis wo IV con 07/2023 IMPRESSION: Large staghorn stone in the left renal pelvis and moderate left hydronephrosis. Mild left perinephric fat stranding. This may represent backflow of urine secondary to obstruction. Differential would include infection. Tiny bilateral nonobstructing lower pole renal stones. Assessment and Plan Assessment Anesthesia Assessment: Chart Reviewed Documented by User: Tono Rodriguez MD 10/07/23 07:36 [facility] Past Medical History Medical History Pre-op evaluation Renal calculi Family History Family History Mother No problems noted. Father No problems noted. Family history of problems with anesthesia: No Surgical History Surgical History (Updated 10/03/23 @ 09:16 by Rhoda Vanessa RN) History of surgery Tubal ligation status History of History of Problems with Anesthesia: No Social History Social History Housing: Apartment Alcohol intake: never Patient Tobacco Use Status: Never used Tobacco e-Cigarette/Vaping Use: Never Used Second Hand Smoke Exposure: No Use of substances other than those prescribed or required for medical reasons: No Are you DNR?: No Advance Directives: No Advance Directives Information Provided: Yes Advance Directives on File: No service: No Current occupational status: unemployed Cognitive needs: No Hearing needs: No Vision needs: No Meds Allergies Allergy/AdvReac Type Severity Reaction Status Date / Time kiwi [KIWI] Allergy Intermediate THROAT Verified 09/27/23 09:21 ITCHING Exam Airway Mallampati Class: I Neck ROM: Full Heart: tachy sinus Lungs: cta b/l Assessment and Plan Assessment Anesthesia Assessment: Anesthesia Plan Discussed Final Anesthetic Review Family History of Problems with Anesthesia: No History of Problems with Anesthesia: No NPO: Yes ASA Class: I Final Preanesthetic Review: No Changes in Pt Med Stat, Consent Obtained/Reviewed and Anes Risks/Benef Reviewed Patient Risk: Intermediate Procedure Risk: Intermediate Anesthetic Plan Anesthetic Plan: GA Disposition: Standard PACU
[2023-10-07] VITALS (10 sets, daily range): BP systolic 109–133; BP diastolic 55–81; PULSE 108–154; RESP 12–18; TEMP 36.6–36.9; O2SAT 100; BMI 22.2
--- NOTE | ~2023-10-07 | FL_ITS ---
EXAMINATION: XR FLUOROSCOPY WITH IMAGES CLINICAL INFORMATION: Percutaneous nephrolithotomy COMPARISON: Single view from 10/01/2023 TECHNIQUE: Fluoroscopy Supervised By: Dr. Derian Carrillo. Fluoroscopy Time: 366.5 seconds. Cumulative Dose: 75.84 mGy. Images: 1. FINDINGS: There is nephrostomy tube seen adjacent to the large staghorn calculus FL/FL guidance in OR IMPRESSION: Fluoroscopic assistance
--- NOTE | 2023-10-07 06:15 | ECG_ITS ---
Test Reason : 9 Blood Pressure : / mmHG Vent. Rate : 146 BPM Atrial Rate : 146 BPM P-R Int : 104 ms QRS Dur : 068 ms QT Int : 336 ms P-R-T Axes : 000 035 043 degrees QTc Int : 523 ms Sinus tachycardia with short MI ST & T wave abnormality, consider inferior ischemia Abnormal ECG When compared with ECG of 23-FEB-2021 08:59, Nonspecific T wave abnormality now evident in Lateral leads Referred By: Eliu Pineda Electronically Signed By:Kendall Black
--- NOTE | 2023-10-07 06:27 | PC.NURSE ---
Addendum entered by Keenan Moreira RN 10/07/23 07:17: Patient mother at bedside. Dr. Rodriguez anesthesiologist at bedside with railroad wheels and axles inspector. HR 150-160's. BP 150/83. Original Note: patient HR elevated 150-175. patient states I just get very anxious . HR down to 130's. Dr. Pineda notified and orders received to obtain 12 lead EKG. weld technician at bedside.
[2023-10-07] MEDS: Lactated Ringers 1,000 ML 100 ML IVCONT (06:39)
--- NOTE | 2023-10-07 07:54 | MHC.SHP ---
Pre-Procedural Eval Section A - 24 Hr Update-Section A only Date of Service: 10/07/23 The patient is an INPATIENT: No Changes since office visit: No Cold of Flu in the past 2 weeks, No New Medical Problems, No Changes in Medication and No Patient answered all questions The patient has been examined within 24 hours of the surgical procedure. The History & Physical has been completed within 30 days and I have reviewed it.: Yes Section B - Complete if H&P > 30 days Chief Complaint: Calculus of kidney Relevant Social History: None Present Medications: see Short Stay Collaborative assessment Medical History: No relevant PMH History of Previous Operations: Relevant previous surgery/procedure and date(s) Allergies: Allergies Allergy/AdvReac Type Severity Reaction Status Date / Time kiwi [KIWI] Allergy Intermediate THROAT Verified 09/27/23 09:21 ITCHING Review of Systems Sugical H&P ROS: Negative: Constitution, Cardiovascular, Respiratory, Neurological, Psychiatric, Hem-Onc, Allergic/Immunologic, Gastrointestinal, Genitourinary, Musculoskeletal, Integumentary, Endocrine and Eyes/Ears/Nose/Throat Exam Surgical H&P Exam: Normal: HEENT, Normal: Heart, Normal: Lungs, Normal: Extremities, Normal: Abdomen, Normal: Skin and Normal: Neurological Plan Diagnosis/Plan: Unchanged (left PCNL) I have reviewed the history and physical and performed a pertinent physical examination on my patient. No changes have occurred unless specified. Time Spent With Patient Time: Total time managing care of this patient today ____ minutes.
[2023-10-07] MEDS: HYDROmorphone HCl 0.5 MG/0.5 ML SYRINGE IVPUSH (10:50)
[2023-10-07] MEDS: Haloperidol Lactate 5 MG/ML VIAL 1 MG IVPUSH (10:59)
[2023-10-07] MEDS: Phenazopyridine HCL 100 MG TABLET PO (11:01)
[2023-10-07] MEDS: oxyCODONE HCl Immed Release 5 MG TABLET PO (11:20)
[2023-10-07] MEDS: Acetaminophen 325 MG TABLET 650 MG PO (11:20)
--- NOTE | 2023-10-07 11:30 | P.CONCA_ITS ---
History of Present Illness History of Present Illness Date of Service: 10/07/23 Requesting physician: Derian Carrillo Chief complaint: Sinus tachycardia Narrative: [age] year female who we have been asked to see for sinus tachycardia. She has known history of anxiety disorder and tachycardia in the past. She said in [place] she had surgery where she was noticed to have sinus tachycardia 2. She takes anxiety medications. She said that she gets very anxious when she comes to the hospital and usually has a fairly fast heart rates when she is in the hospital. She came today for urologic procedure for kidney stones. She was noticed to have a heart rate of 150 beats per minute. Reviewing the EKG looks like she had sinus tachycardia. She had no symptoms. She is denying any palpitations at home. She is denying any thyroid disorder. No anemia in the past. No fevers or chills or any other current active complaints. ON LICENSE OF [facility] Past Medical History Medical History (Updated 10/07/23 @ 11:47 by Kendall Black MD) Pre-op evaluation Renal calculi Family History Family History Mother No problems noted. Father No problems noted. Surgical History Surgical History (Updated 10/03/23 @ 09:16 by Rhoda Vanessa RN) History of surgery Tubal ligation status History of Social History Social History Housing: Apartment Alcohol intake: never Patient Tobacco Use Status: Never used Tobacco e-Cigarette/Vaping Use: Never Used Second Hand Smoke Exposure: No Use of substances other than those prescribed or required for medical reasons: No Are you DNR?: No Advance Directives: No Advance Directives Information Provided: Yes Advance Directives on File: No service: No Current occupational status: unemployed Cognitive needs: No Hearing needs: No Vision needs: No Meds Allergies Allergy/AdvReac Type Severity Reaction Status Date / Time kiwi [KIWI] Allergy Intermediate THROAT Verified 09/27/23 09:21 ITCHING Active Medications: Current Medications Fentanyl (Fentanyl Citrate/Pf 100 Mcg/2 Ml Vial) 25 mcg IVPUSH Q5M PRN; Protocol PRN Reason: Pain, Moderate(Pain Scale 4-6) Haloperidol Lactate (Haloperidol Lactate 5 Mg/Ml Vial) 1 mg IVPUSH ONCE PRN PRN Reason: Nausea and Vomiting Last Admin: 10/07/23 10:59 Dose: 1 mg Hydromorphone HCl (Hydromorphone Hcl 0.5 Mg/0.5 Ml Syringe) 0.5 mg IVPUSH Q5M PRN; Protocol PRN Reason: Pain, Severe (Pain Scale 7-10) Last Admin: 10/07/23 10:50 Dose: 0.5 mg Lactated Ringer's (Lr) 1,000 mls @ 100 mls/hr IVCONT .Q10H SHAILESH Last Admin: 10/07/23 06:39 Dose: 100 mls/hr Oxycodone HCl (Oxycodone Hcl Immed Release 5 Mg Tablet) 5 mg PO Q4H PRN PRN Reason: Breakthrough Pain Last Admin: 10/07/23 11:20 Dose: 5 mg Pharmacy Consult (Consult Rx Vancomycin Dosing) 1 each MISCELLANE DAILY PRN PRN Reason: Consult order Physical Exam Vital Signs: Vital Signs: Last Vital Signs Temp 97.8 F 10/07/23 10:30 Pulse 116 H 10/07/23 11:10 Resp 18 10/07/23 11:10 BP 109/80 10/07/23 11:10 Pulse Ox 100 10/07/23 11:10 O2 Del Method Room Air 10/07/23 11:10 O2 Flow Rate 6 10/07/23 10:35 BMI result Body Mass Index 22.2 GENERAL APPEARANCE: in no acute distress, pleasant. NECK: no carotid bruit, no jugular venous distention. SKIN: no suspicious lesions, warm and dry. HEART: no murmurs, regular rate and rhythm. Tachycardic. LUNGS: clear to auscultation bilaterally. ABDOMEN: soft, nontender. EXTREMITIES: no edema. PERIPHERAL PULSES: equal. Assessment and Plan (1) Sinus tachycardia: Status: Acute Plan Pleasant 32-year-old female who is here for urological procedure for kidney stones. She is noticed to have sinus tachycardia. She is postop right now and heart rate is 116 beats per minute. Clinically she has not complaining any symptoms. It appears this has happened to her before. She has known history of anxiety disorder also. IV fluids postop and ST recover she should go home. We will arrange that she could come to our office for further workup. I think she should have repeat thyroid profile. The last 1 was in 2019 and was normal. I think most likely reason for her tachycardia is anxiety. Thank you for allowing me to participate in the care of your patient. Please feel free to contact me if you have any questions. Procedures Date of Service Date of Service: 10/07/23
--- NOTE | 2023-10-24 16:52 | W.PM.OPN ---
Operative Note Operative Note Date of Service: 10/07/23 Narrative: PreOperative Diagnosis: Right staghorn calculus Post Operative Diagnosis: Right staghorn calculus Procedure: Right antegrade, attempted access to right renal pelvis, right stent placement Surgeon: Dr Derian Carrillo Anesthesia: General Indications for procedure: Large greater than 3 cm right renal staghorn calculus. Patient has undergone a nephroureteral stent placement. Is here for planned PCNL of right kidney Procedure: After informed consent was verified the patient was brought to the operating room and placed in a prone position. Anesthesia was administered per protocol. The patient was prepped and draped in a sterile fashion. Safety pause time-out was performed. Antibiotics being given. The nephroureteral stent was loosened. The suture was cut to release tension in the nephrostomy tube. Sensor guidewire was placed through the tube down to level of the bladder. Dual lumen catheter was then placed over the single wire down into the ureter. Antegrade examination is performed. Flow shown down into the bladder. Second wire placed not to act as a safety wire. Percutaneous tube incision was enlarged to allow dilatation. Using the clearpetra access system and 18 [place]an access was placed with dilatation of the nephrostomy tract. Under fluoroscopy it appeared that the tract was dilated on 2 the staghorn calculus. The internal trocar was removed. Using a 12 [place]an disposable rigid cystoscope this was introduced. It appeared that the dilatation did not take us directly onto the stone. We were within the parenchyma of the kidney. The scope was removed. An attempt was made to redilate onto the kidney stone. An attempt was then made to relook. This continued for approximately 40 minutes. It appeared that the wire had bounced around the kidney and through the parenchyma entering the upper part of the ureter in going down into the bladder. A decision was made to place a antegrade stent and reschedule the procedure for a retrograde access. A 6 [place] by 22 cm double-J stent was placed over the wire into the bladder. Was then deployed and appeared to be within the renal pelvis. The safety wire was then removed. The small incision at the skin level was packed with a small piece of Gelfoam and closed with a single suture. The patient was extubated in operating room transferred in stable condition to recovery area. Pathology: Drains:
== END 2023-10-07 12:32 | disposition home or self-care (01) ==
PROVIDERS: PCP Internal Medicine; Visit Provider Urology
PROC: (CPT 50081; principal; 2023-10-07 07:30)
DX: N20.0 Calculus of kidney (principal); R00.0 Tachycardia, unspecified; F41.9 Anxiety disorder, unspecified; Z79.899 Other long term (current) drug therapy; Z98.890 Other specified postprocedural states
CPT/HCPCS: 50081; 50436; 93005; C1726; C1758; C1769; C2617; J1170; J1630; J1805; J1956; J2250; J2405; J2704; J2795; J3010; J3370; Q9967

== ENCOUNTER → 2023-10-07 05:42 | Outpatient (BNV) | payer OTHER, SELFPAY | PROVIDERS: PCP Internal Medicine; Visit Provider Internal Medicine Cardiovascular Disease | DX: R94.31 Abnormal electrocardiogram [ECG] [EKG] (principal) | CPT/HCPCS: 93010; 99222 ==

== ENCOUNTER → 2023-10-07 05:42 | Outpatient (BNV) | payer OTHER, SELFPAY | PROVIDERS: PCP Internal Medicine; Visit Provider Urology | DX: N20.0 Calculus of kidney (principal) | CPT/HCPCS: 50081; 52332; 52356; 74420; 74425 ==

== ENCOUNTER 2023-10-28 12:44 | Day surgery (SDC) | payer OTHER, SELFPAY ==
[2023-10-24 10:52] VITALS: BMI 22.2
--- NOTE | 2023-10-25 12:26 | P.CONAN_ITS ---
Documented by User: Iesha Johnson NP 10/25/23 12:31 HPI - Anesthesia Eval Consult details Narrative: 33yo F for Left Cystoscopy, Ureteroroscopy, Retro, Laser,with possible stent s/p Left Percutaneous Nephro-lithotomy with Ureteroscopy. Pt with sinus tach. Reported previous occurance with other surgery. Preop EKG and proceeded to OR. Tolerated procedure well. Consult with cardiology post op. Likely r/t anxiety. Consider thyroid testing, but no further cardiac w/u at that time. [facility] Active Problems Active Problems: All Active Problems (Updated 10/24/23 @ 10:48 by Rhoda Vanessa RN) Sinus tachycardia (Acute) Staghorn calculus (Acute) Screening for cervical cancer (Acute) Physical exam (Acute) Insomnia (Acute) Neck pain (Acute) Pre-op evaluation (Acute) Renal calculi (Acute) Past Medical History Medical History Anxiety Tachycardia Renal calculi Family History Family History Mother No problems noted. Father No problems noted. Family history of problems with anesthesia: No Surgical History Surgical History Hx of cystoscopy History of surgery Tubal ligation status History of History of Problems with Anesthesia: No Social History Social History Housing: Apartment Alcohol intake: never Patient Tobacco Use Status: Never used Tobacco e-Cigarette/Vaping Use: Never Used Second Hand Smoke Exposure: No Use of substances other than those prescribed or required for medical reasons: No Are you DNR?: No Advance Directives: No Advance Directives Information Provided: Yes service: No Current occupational status: unemployed Cognitive needs: No Hearing needs: No Vision needs: No Meds Allergies Allergy/AdvReac Type Severity Reaction Status Date / Time kiwi [KIWI] Allergy Intermediate THROAT Verified 10/28/23 13:34 ITCHING Exam Height,Weight and Vital Signs: Height 4 ft 11 in Weight 49.8 kg Narrative Narrative: EKG 10/2023 Vent. Rate : 146 BPM Atrial Rate : 146 BPM P-R Int : 104 ms QRS Dur : 068 ms QT Int : 336 ms P-R-T Axes : 000 035 043 degrees QTc Int : 523 ms Sinus tachycardia with short NH ST & T wave abnormality, consider inferior ischemia Abnormal ECG When compared with ECG of 23-FEB-2021 08:59, Nonspecific T wave abnormality now evident in Lateral leads Assessment and Plan Assessment Anesthesia Assessment: Chart Reviewed Final Anesthetic Review Family History of Problems with Anesthesia: No History of Problems with Anesthesia: No Documented by User: Guy Keane MD 10/28/23 15:35 [facility] Past Medical History Medical History Anxiety Tachycardia Renal calculi Patient : No (s/p tubal ligation) Narrative: h/o sinus tach up to 140s. Family History Family History Mother No problems noted. Father No problems noted. Surgical History Surgical History Hx of cystoscopy History of surgery Tubal ligation status History of Social History Social History Housing: Apartment Alcohol intake: never Patient Tobacco Use Status: Never used Tobacco e-Cigarette/Vaping Use: Never Used Second Hand Smoke Exposure: No Use of substances other than those prescribed or required for medical reasons: No Are you DNR?: No Advance Directives: No Advance Directives Information Provided: Yes service: No Current occupational status: unemployed Cognitive needs: No Hearing needs: No Vision needs: No Meds Allergies Allergy/AdvReac Type Severity Reaction Status Date / Time kiwi [KIWI] Allergy Intermediate THROAT Verified 10/28/23 13:34 ITCHING Exam Airway Mallampati Class: II TM Dist: >3cm Neck ROM: Full Loose/Missing/Broken Teeth: No Heart: ok Lungs: ok Other: braces Assessment and Plan Assessment Anesthesia Assessment: Anesthesia Plan Discussed Final Anesthetic Review NPO: Yes ASA Class: II Final Preanesthetic Review: No Changes in Pt Med Stat, Meds/Allgs Chart Reviewed, Consent Obtained/Reviewed and Anes Risks/Benef Reviewed Patient Risk: Low Procedure Risk: Low Anesthetic Plan Anesthetic Plan: GA and Agree w/ Assess. and Plan Disposition: Standard PACU
[2023-10-28] VITALS (10 sets, daily range): BP systolic 114–148; BP diastolic 78–99; PULSE 98–141; RESP 16–24; TEMP 36.1–36.4; O2SAT 98–100; BMI 22.0
--- NOTE | ~2023-10-28 | FL_ITS ---
EXAMINATION: XR FLUOROSCOPY WITH IMAGES CLINICAL INFORMATION: Left stone COMPARISON: None available. TECHNIQUE: Fluoroscopy Supervised By: Dr. Derian Carrillo. Fluoroscopy Time: 101.2 seconds. Cumulative Dose: 18.4 mGy. Images: 4. FL/FL guidance in OR FINDINGS/IMPRESSION: Retrograde pyelogram with numerous catheters noted within the right renal collecting system. Final fluoroscopic images demonstrate no catheter in the left kidney.
[2023-10-28] MEDS: Lactated Ringers 1,000 ML 100 ML IVCONT (13:52)
--- NOTE | 2023-10-28 15:01 | MHC.SHP ---
Pre-Procedural Eval Section A - 24 Hr Update-Section A only Date of Service: 10/28/23 Section B - Complete if H&P > 30 days Chief Complaint: Calculus of kidney Details of Present Illness: left renal staghorn Relevant Family History (Specify if Yes): No Relevant Social History: None Present Medications: see Short Stay Collaborative assessment Medical History: No relevant PMH History of Previous Operations: Relevant previous surgery/procedure and date(s) Allergies: Allergies Allergy/AdvReac Type Severity Reaction Status Date / Time kiwi [KIWI] Allergy Intermediate THROAT Verified 10/28/23 13:34 ITCHING Review of Systems Sugical H&P ROS: Negative: Constitution, Cardiovascular, Respiratory, Neurological, Psychiatric, Hem-Onc, Allergic/Immunologic, Gastrointestinal, Genitourinary, Musculoskeletal, Integumentary, Endocrine and Eyes/Ears/Nose/Throat Exam Surgical H&P Exam: Normal: HEENT, Normal: Heart, Normal: Lungs, Normal: Extremities, Normal: Abdomen, Normal: Skin and Normal: Neurological Plan Diagnosis/Plan: Unchanged (Cystoscopy, left retrograde, left ureteroscopy with laser lithotripsy stent placed) I have reviewed the history and physical and performed a pertinent physical examination on my patient. No changes have occurred unless specified. Time Spent With Patient Time: Total time managing care of this patient today ____ minutes.
--- NOTE | 2023-10-28 19:13 | W.PM.OPN ---
Operative Note Operative Note Date of Service: 10/28/23 Narrative: PreOperative Diagnosis: Left renal Staghorn 4 cm Post Operative Diagnosis: Left renal staghorn 4 cm in diameter Procedure: - cystoscopy, left retrograde - removal of left stent - left ureteroscopy, laser lithotripsy - modifier 22 for 400% longer than typical staghorn c calculi Surgeon: Dr Derian Carrillo Anesthesia: General Indications for procedure: 4 cm staghorn calculus. Prior attempt at PCNL. Interventional Radiology had placed wire through parenchyma and into ureter avoiding the renal pelvis which was completely filled with a 4 cm in diameter by 4 cm in length staghorn calculus. Procedure: After informed consent was verified patient was brought to the operating placed in supine position. Anesthesia was administered per protocol. Patient was placed in modified dorsal lithotomy position and prepped and draped in a sterile fashion. Safety pause time-out and side of surgery confirmed. Antibiotics confirmed. 22 [place]ian cystoscope was inserted per urethra. Bladder was normal in its entirety. Both ureteric orifices were in normal position. Stent emerging from left ureter. Stent grasped and removed. The left ureteric orifice was cannulated and a retrograde examination was performed. Complete filling defect of renal pelvis with large staghorn. A Sensor guidewire was placed up to the level of the renal pelvis under fluoroscopy. The rigid cystoscope was removed and the inner cannula of ureteric access sheath was used under fluoroscopy to dilate the ureteric orifice. A suction ureteric access sheath was initially used. This was subsequently replaced for a flexible ureteric access sheath The ureteric access sheath was placed and the inner cannula with access wire removed. The disposable digital flexible ureteral scope was placed. Using a 375nm holmium laser the stone itself was slowly broken into fragments. Suction was used in order to collect debris. The case took approximately 4 hours to remove as much debris as had been created. Great care had been taken. All calices were checked. Infectious stone was found in the lower pole calyx. Multiple disposable digital flexible ureteral scopes were required. The fiber was replaced 3 times. Total length of time performing ureteroscopy was approximately 400% longer than typical. A 4 [place]ian open-ended had been placed mid point up into the upper pole of the renal pelvis in order to help with fluid circulation. At the completion of the stone procedure the access sheath was removed. The bladder was emptied. The patient tolerated the procedure well and was extubated in the operating room, and transferred in stable condition to the recovery area. Pathology: Stone debris Drains:
[2023-10-28] MEDS: Phenazopyridine HCL 100 MG TABLET PO (20:30)
[2023-10-28] MEDS: Acetaminophen 325 MG TABLET 975 MG PO (20:41)
[2023-10-28] MEDS: Ondansetron ODT 4 MG TAB.RAPDIS TRANSLINGU (20:58)
[2023-11-08 21:18] LABS: Stone Source LEFT RENAL STONE
== END 2023-10-28 21:02 | disposition home or self-care (01) ==
PROVIDERS: PCP Internal Medicine; Visit Provider Urology
PROC: (CPT 52353; principal; 2023-10-28 15:20)
DX: N20.0 Calculus of kidney (principal); Z87.442 Personal history of urinary calculi; F41.9 Anxiety disorder, unspecified; R00.0 Tachycardia, unspecified; Z79.899 Other long term (current) drug therapy; Z56.0 Unemployment, unspecified
CPT/HCPCS: 52353; 82365; 88300; C1758; C1769; J1596; J1805; J1885; J1956; J2250; J2405; J2704; J3010; Q9967

== ENCOUNTER → 2023-10-28 12:44 | Outpatient (BNV) | payer OTHER, SELFPAY | PROVIDERS: PCP Internal Medicine; Visit Provider Urology | DX: N20.0 Calculus of kidney (principal) | CPT/HCPCS: 52356; 74420 ==

== ENCOUNTER 2024-02-03 12:59 | Outpatient (AMB) | payer OTHER, SELFPAY ==
[2024-02-03 13:01] VITALS: BP 134/70; PULSE 72; O2SAT 98; BMI 21.6
--- NOTE | 2024-02-03 13:01 | A.OFFPC_ITS ---
Vital Signs 02/03/24 13:01 Height 4 ft 11 in Weight 107 lb BMI 21.6 BP 134/70 Blood Pressure Location Lt brachial Position Sitting Pulse 72 Pulse Source Pulse Oximeter Pulse Oximetry (%) 98 Oxygen Delivery Method Room Air Intake Visit Reasons: Annual Exam Shelter Monitor Required: No Accompanied by: Self / Same As Patient Allergies kiwi [KIWI] Allergy (Intermediate, Verified 02/03/24 13:15) THROAT ITCHING Medication List - Last Reconciled 02/03/24 by Deepa Booth MD mirtazapine (Remeron) 15 mg PO BEDTIME 90 days Tobacco use date assessed: 02/03/24 Dental Screening Dental Screen Date: 02/03/24 Did you have a dental visit in the last 12 months?: No Did you have a dental problem in the last 6 months where you did not have access to dental care?: No Was dental information given to patient?: Patient has dentist HPI HPI Comments History of Present Illness Details This is a 33-year-old female that comes for her physical exam. Pap smear up-to-date. She has mild persistent asthma requires rescue inhaler less than once a month. She also has history of staghorn calculus follow by Urology and an ultrasound renal will be ordered. [facility] Medical History (Updated 02/03/24 @ 13:30 by Deepa Booth MD) Anxiety Tachycardia Renal calculi Surgical History Hx of cystoscopy History of surgery Tubal ligation status History of Family History Mother No problems noted. Father No problems noted. Social History Housing: Apartment Alcohol intake: never Patient Tobacco Use Status: Never used Tobacco Tobacco use type: Cigarette e-Cigarette/Vaping Use: Never Used Second Hand Smoke Exposure: No service: No Current occupational status: unemployed Cognitive needs: No Hearing needs: No Vision needs: Yes Questionnaire PHQ-9 Over the last 2 weeks, how often have you been bothered by any of the following problems? 1. Little interest or pleasure in doing things: not at all 2. Feeling down, depressed, or hopeless: not at all 3. Trouble falling or staying asleep, or sleeping too much: more than half the days 4. Feeling tired or having little energy: not at all 5. Poor appetite or overeating: not at all 6. Feeling bad about yourself - or that you are a failure or have let yourself or your family down: not at all 7. Trouble concentrating on things, such as reading the newspaper or watching television: not at all 8. Moving or speaking so slowly that other people could have noticed. Or the opposite - being so fidgety or restless that you have been moving around a lot more than usual: not at all 9. Thoughts that you would be better off or of hurting yourself in some way: not at all Total score: 2 Depression Screening Interpretation: Positive Depression Screening Follow-up: Existing condition and Follow-up Visit Requested Depression Screening Done: Yes 68031 - PHQ-9 Billing: Yes Source: Developed by Drs. Fredy Newton, Thao Cali, Mak Shoemaker and colleagues, with an educational dinah from [employer]. Thrive Questionnaire Date Thrive assessed: 02/03/24 I am a: Patient What is your living situation today?: I have a steady place to live Within the past 12 months, did the food you bought not last and you didn't have the money to get more?: Never true Within the past 12 months, did you worry whether your food would run out before you got money to buy more?: Never true Do you have trouble paying for medicines?: No Do you have trouble getting transportation to medical appointments?: No Do you have trouble paying your heating and electricity bill?: No Do you have trouble taking care of your child, family member or friend?: No Do you have trouble with day-to-day activities such as bathing, preparing meals, shopping, managing finances, etc.?: No Are you currently unemployed and looking for a job?: No Are you interested in more education?: No Currently or been in a relationship where the following occur: No concerns reported THRIVE Score: 0 AUDIT C Alcohol Use Questionnaire (AUDIT-C) 1. How often do you have a drink containing alcohol?: Never 3. How often do you have six or more drinks on one occasion?: Never Total Score: 0 Score Reviewed/Action Taken: No MARLEY-7 AMB Questionnaire MARLEY-7 Date MARLEY - 7 assessed: 02/03/24 Feeling nervous, anxious, or on edge: 0 = Not at all Not being able to stop or control worryin = Not at all Worrying too much about different things: 0 = Not at all Trouble relaxin = Not at all Being so restless that it is hard to sit still: 0 = Not at all Becoming easily annoyed or irritable: 0 = Not at all Feeling afraid as if something awful might happen: 0 = Not at all Total MARLEY-7 score (0-4 normal; 5-9 mild; 10-14 moderate; 15-21 severe): 0 Source: Developed by Drs. Fredy Newton, Thao Cali, Mak Shoemaker and colleagues, with an educational dinah from [employer]. MARLEY-7 Assessment Billing MARLEY-7 Assessment Tool: MARLEY-7 Assessment 62938 Review of Systems Const All systems reviewed & are unremarkable except as noted in HPI and below Card Denies chest pain at rest, Denies chest pain with activity, Denies edema, Denies irregular heart rhythm, Denies claudication, Denies dyspnea, Denies dyspnea on exertion, Denies orthopnea, Denies paroxysmal nocturnal dyspnea and Denies slow heart rate Resp Denies cough, Denies dyspnea and Denies dyspnea on exertion GI Denies abdominal pain, Denies change in bowel habits, Denies excessive flatus, Denies nausea and Denies vomiting Musc Denies abnormal gait Neuro Denies abnormal gait, Denies behavioral changes, Denies confusion and Denies lack of coordination Psych Denies behavioral changes and Denies confusion Physical exam (Primary Care) Vital Signs: Last Vital Signs Pulse 72 02/03/24 13:01 BP 134/70 02/03/24 13:01 Pulse Ox 98 02/03/24 13:01 Oxygen Delivery Method Room Air 02/03/24 13:01 BMI result Body Mass Index 21.6 Tobacco/Smoking Status: Tobacco use Status Tobacco use date assessed 02/03/24 02/03/24 13:07 Patient Tobacco Use Status Never used Tobacco 02/03/24 13:07 Tobacco use type Cigarette 02/03/24 13:07 e-Cigarette/Vaping Use Never Used 02/03/24 13:07 PHQ-9: PHQ-9 Score PHQ-9: Total score 2 02/03/24 13:07 Depression Screening Interpretation: Positive Depression Screening Follow-up: Existing condition and Follow-up Visit Requested Thrive Assessment: Date of Thrive Assessment Date Thrive assessed 02/03/24 02/03/24 13:07 Currently or been in a relationship where the following occur: No concerns reported Const General: No confusion Orientation/consciousness: patient oriented x3 and No confusion HENMT Head: Yes normal to inspection, Yes normocephalic and Yes atraumatic Ears: external ears normal Eyes General: appearance normal, both eyes and all related structures Eyelids: Yes eyelids normal Conjunctivae: conjunctivae normal Neck Neck: Yes normal visual inspection and Yes supple Resp Effort & Inspection: normal respiratory effort Auscultation: clear to auscultation bilaterally Cardio Jugular venous distension: no JVD Rate: regular rate Rhythm: regular rhythm Heart sounds: S1 normal heart sound present and S2 normal heart sound present GI Inspection: Yes normal to inspection Palpation (GI): Soft to palpation and nontender Auscultation: normal bowel sounds Skin General skin exam: no rashes or lesions noted Neuro General: patient oriented x3, no focal motor deficits and No confusion Extrem General: Yes full ROM Psych Appearance: grossly normal Assessment and Plan Assessment & Plan (1) Physical exam: Code(s): Z00.00 - Encounter for general adult medical examination without abnormal findings Plan: Repeat in a year. (2) Mild persistent asthma: Code(s): J45.30 - Mild persistent asthma, uncomplicated Qualifiers: Asthma complication type: uncomplicated Qualified Code(s): J45.30 - Mild persistent asthma, uncomplicated Plan: Use rescue inhaler as needed. (3) Staghorn calculus: Code(s): N20.0 - Calculus of kidney Plan: Ultrasound renal ordered. Follow-up with Urology. Orders: Orders T Spot TB Today Z11.1 - Encounter for screening for respiratory tuberculosis Lipid Panel Today Z00.00 - Encounter for general adult medical examination without abnormal findings Comprehensive [place]. Panel Fast Today Z00.00 - Encounter for general adult medical examination without abnormal findings US renal BI Today N20.0 - Calculus of kidney Medications: New albuterol sulfate 2.5 mg (3 mL) inhalation Q6H 30 days 360 mL 1RF J45.30 - Mild persistent asthma, uncomplicated albuterol sulfate 90 mcg/actuation (Ventolin HFA) 2 puffs inhalation Q6H 30 days PRN 8.5 grams 0RF shortness of breath or wheezing J45.30 - Mild persistent asthma, uncomplicated Coding Level of Care Code Est Pt Level 3 (64682) Est Pt Prev Care 18-39y(32572) Diagnoses Physical exam Z00.00 Mild persistent asthma without complication J45.30 Asthma complication type: uncomplicated Staghorn calculus N20.0 Additional Codes MARLEY-7 Assessment Billing - MARLEY-7 Assessment Tool: MARLEY-7 Assessment 88973 ([id number]) Time Spent (min) 31
== END 2024-02-03 13:28 | disposition home or self-care (01) ==
PROVIDERS: PCP Internal Medicine; Visit Provider Internal Medicine
DX: Z00.00 Encounter for general adult medical examination without abnormal findings (principal); J45.30 Mild persistent asthma, uncomplicated; N20.0 Calculus of kidney
CPT/HCPCS: 99213; 99395

== ENCOUNTER 2024-04-20 11:18 | Outpatient (REF) | payer OTHER, SELFPAY ==
[2024-04-20 11:39] LABS: MANUAL DIFF FLAG NO
[2024-04-20 11:59] LABS: Basophils Absolute Auto 0.1 X10*3/uL (0.0-0.2); Basophils Percent Auto 1.4 % (0-2); Eosinophils Absolute Auto 0.2 X10*3/uL (0.0-0.4); Eosinophils Percent Auto 3.1 % (0-4); Hematocrit 39.7 % (37.0-47.0); Hemoglobin 13.2 g/dl (12.0-16.0); Imm Gran Abs Auto 0.02 X10*3/uL (0.00-0.03); Imm Gran Pct Auto 0.3 % (0.0-0.4); Lymphocytes Absolute Auto 2.4 X10*3/uL (1.2-4.9); Lymphocytes Percent Auto 30.5 % (20-40); Mean Corpuscular HGB Conc 33.2 g/dl (31.0-35.0); Mean Corpuscular Hemoglobin 28.3 pg (27.0-33.0); Mean Platelet Volume 9.3 fL (9.4-12.3); Monocytes Absolute Auto 0.5 X10*3/uL (0.1-1.2); Monocytes Percent Auto 6.1 % (2-11); Neutrophils Absolute Auto 4.5 x10*3/uL (2.0-8.3); Neutrophils Percent Auto 58.6 % (45-73); Platelet Count 484 X10*3/uL (160-400); Red Blood Count 4.67 X10*6/uL (4.20-5.50); Red Cell Distribution Width 13.7 % (11.0-16.0); White Blood Count 7.7 X10*3/uL (4.8-10.8)
[2024-04-20 12:45] LABS: Appearance Urine Cloudy; Color Urine Yellow; Glucose Urine UA Negative (Negative); Leukocyte Esterase Urine Large (3+) (Negative); Nitrite Urine Negative (Negative); PH 7.5 (5.0-9.0); Specific Gravity - Urine 1.015 (1.005-1.025); UMIC TRIGGER UACC YES; Urine Blood Small (1+) (Negative); Urine Ketones Negative (Negative); Urine Protein 30 (1+) mg/dL (Neg-Trace)
[2024-04-20 13:04] LABS: Bacteria Urine 2+ (None Seen); Hyaline Casts Urine 0-2 /LPF (0-2); RBC Urine 0-2 /HPF (0-2); UACC Culture Trigger YES
[2024-04-20 13:18] LABS: Alanine Aminotransferase 9 U/L (0-31); Albumin Level 4.4 g/dL (3.5-5.0); Alkaline Phosphatase 102 U/L (39-117); Anion Gap 15 (12-20); Aspartate Amino Transferase 15 U/L (5-31); Bilirubin Total 0.5 mg/dL (0.0-1.0); Blood Urea Nitrogen 12 mg/dL (9-16); Calcium 9.5 mg/dL (8.4-10.2); Carbon Dioxide 26 mmol/L (22-29); Chloride 102 mmol/L (96-108); Cholesterol 186 mg/dL (<200); Estimated Glomerular Filt Rate > 60; Glucose Fasting 87 mg/dL (60-99); HDL Cholesterol 50 mg/dL (>40); LDL Cholesterol Calculated 117 mg/dL (<100); Sodium 139 mmol/L (135-145); Total Protein 8.4 g/dL (6.5-8.0); Triglycerides 97 mg/dL (<150)
[2024-04-23 18:43] LABS: TS Negative Control Passed; TS Panel A 0; TS Panel B 0; TS Positive Control Passed; TSpotTB Negative (Negative)
== END 2024-04-20 11:19 | disposition home or self-care (01) ==
LOC: HO.LAB 11:18
PROVIDERS: PCP Internal Medicine; Visit Provider Internal Medicine
DX: Z00.00 Encounter for general adult medical examination without abnormal findings (principal); Z11.1 Encounter for screening for respiratory tuberculosis; J45.30 Mild persistent asthma, uncomplicated
CPT/HCPCS: 36415; 80053; 80061; 81001; 85025; 86481; 87086

== ENCOUNTER 2024-04-21 14:41 | Outpatient (REF) | payer OTHER, SELFPAY ==
--- NOTE | ~2024-04-21 | US_ITS ---
EXAMINATION: US RETROPERITONEAL LIMITED (RENAL ONLY) CLINICAL INFORMATION: Calculus of kidney. COMPARISON: CT abdomen and pelvis 07/10/2023. TECHNIQUE: Real-time imaging of the kidneys. FINDINGS: RIGHT KIDNEY: 11.8 x 4.0 x 4.8 cm (SAG x AP x TRV). The kidney is normal in size, contour, and echogenicity. Renal cortical thickness is normal. No calculi or focal parenchymal lesions. No hydronephrosis. LEFT KIDNEY: 7.5 x 4.5 x 4.2 cm (SAG x AP x TRV). Mildly atrophic left kidney, otherwise normal contour and echogenicity. Renal cortical thickness is normal. No renal calculi or focal parenchymal lesions. A previously described staghorn calculus in the left renal pelvis is not visualized in this examination. There is moderate hydronephrosis and proximal left hydroureter, the remaining of the ureter is not well seen due to shadowing from overlying bowel gas. ADDITIONAL FINDINGS: Suboptimal evaluation of the urinary bladder due to decompression. Ureteral jets are not seen. US/US renal BI IMPRESSION: 1. Moderate left-sided hydronephrosis and proximal left hydroureter; unfortunately, the mid and distal left ureter are not well seen. Consider further evaluation with CT abdomen/pelvis as clinically warranted. 2. Previously described staghorn calculus in the left renal pelvis is not visualized in this examination. 3. Mildly atrophic left kidney, correlate with renal function tests, and if indicated consider further evaluation with nuclear renal scan to determine functioning of the kidney. 4. Suboptimal evaluation of the urinary bladder due to underdistention. Ureteral jets are not seen. Electronically signed by: Mojgan Love MD 04/28/2024 03:56 PM EDT
[2024-04-21 15:22] LABS: Appearance Urine Clear; Color Urine Yellow; Glucose Urine UA Negative (Negative); Leukocyte Esterase Urine Moderate (2+) (Negative); Nitrite Urine Negative (Negative); Specific Gravity - Urine 1.015 (1.005-1.025); UMIC TRIGGER UA YES; Urine Blood Negative (Negative); Urine Ketones Negative (Negative); Urine Protein Negative (Neg-Trace)
[2024-04-21 15:25] LABS: Bacteria Urine 1+ (None Seen); Hyaline Casts Urine 0-2 /LPF (0-2); RBC Urine 0-2 /HPF (0-2)
== END 2024-04-21 14:42 | disposition home or self-care (01) ==
LOC: HO.US 14:41
PROVIDERS: Absent Provider Urology; PCP Internal Medicine; Visit Provider Internal Medicine
DX: N20.0 Calculus of kidney (principal); N12 Tubulo-interstitial nephritis, not specified as acute or chronic; R39.9 Unspecified symptoms and signs involving the genitourinary system
CPT/HCPCS: 76775; 81001; 87086

== ENCOUNTER 2024-05-07 13:02 | Outpatient (AMB) | payer OTHER, SELFPAY ==
--- NOTE | 2024-05-07 13:03 | MHC.OFFVIS ---
Intake Visit Reasons: US- follow up(set) Intake Note: Patient is Present for Telephone Follow Up Ultrasound Urology Med:None Antibiotic Allergy: None Blood Thinner: None Speech Language Specialist Required: Yes Speech Language Specialist Language: Fingerprint Expert Services: Speech Language Specialist Present Information Interpreted: clinical only Accompanied by: Self / Same As Patient Allergies kiwi [KIWI] Allergy (Intermediate, Verified 05/07/24 13:04) THROAT ITCHING Medication List - Last Reconciled 05/07/24 by Derian Carrillo MD albuterol sulfate 90 mcg/actuation (Ventolin HFA) 2 puffs inhalation Q6H PRN 30 days albuterol sulfate 2.5 mg (3 mL) inhalation Q6H 30 days amoxicillin-pot clavulanate 500-125 mg (Augmentin) 1 tab PO BID 5 days mirtazapine (Remeron) 15 mg PO BEDTIME 90 days sulfamethoxazole-trimethoprim 800-160 mg (Bactrim DS) 1 tab PO BID 3 days HPI Comments Details: Diana is a pleasant speaking Greek female. She is a patient of Dr. Booth. She seen for the following urologic conditions - staghorn calculus Telemedicine Evaluation 15 min Consultation [employer] Dennis Video attempted Greek translation provided by qualified medical education manager No stones on followup imaging No recurrent pyelonephritis Has been doing well Encouraged fluids 12 month follow-up Staghorn calculus Recurrent presentation with left-sided flank pain and pyelonephritis Imaging - 07/27 CT 3 x 4 cm laminated stone in the central left kidney moderate left hydronephrosis - 04/28 renal ultrasound no evidence of stones Intervention - 10/26 ureteroscopy with suction access. Complete resolution [facility] Medical History Anxiety Tachycardia Renal calculi Surgical History Hx of cystoscopy History of surgery Tubal ligation status History of Family History Mother No problems noted. Father No problems noted. Social History Housing: Apartment Alcohol intake: never Patient Tobacco Use Status: Never used Tobacco Tobacco use type: Cigarette e-Cigarette/Vaping Use: Never Used Second Hand Smoke Exposure: No service: No Current occupational status: unemployed Cognitive needs: No Hearing needs: No Vision needs: Yes Review of Systems Const All systems reviewed & are unremarkable except as noted in HPI and below Reports no additional complaints Resp Reports no additional complaints GI Reports no additional complaints Reports as per HPI Musc Reports no additional complaints Physical Exam Telemedicine evaluation Appropriate responses Regular breathing rate and rhythm HEENT Head: Yes normal to inspection Ears: hearing grossly normal bilaterally Eyes General: appearance normal, both eyes and all related structures Neck Neck: Yes normal visual inspection Chest Chest palpation & inspection: normal inspection of the chest Resp Effort & Inspection: normal respiratory effort and able to speak in complete sentences Telehealth Telehealth Telehealth Platform: [employer] Location of provider rendering services: practice address Location of patient: address on file Patient Identification confirmed using: Name, : Yes Telehealth method: video Patient verbally consented to treatment: Yes Patient verbally consented to billing insurance company: Yes Patient informed of any privacy concerns related to visit: Yes Minutes spent on Phone/Video with Pt.: 15 Assessment & Plan Assessment & Plan (1) Cystitis: Code(s): N30.90 - Cystitis, unspecified without hematuria Category: Medical Plan 12 month follow-up image Orders: Orders US renal BI 12 Months N20.0 - Calculus of kidney Medications: New sulfamethoxazole-trimethoprim 800-160 mg (Bactrim DS) 1 tab PO BID 3 days 6 tabs 0RF N30.90 - Cystitis, unspecified without hematuria, N31.9 - Neuromuscular dysfunction of bladder, unspecified Patient Instructions: Imaging studies, laboratory and physical exam results were discussed and reviewed in detail. No major barriers to patient understanding were identified. An opportunity to ask questions regarding the treatment plan was provided. All questions were answered. The patient expressed understanding and agreement with the above treatment plan. The patient is aware they should contact our office by phone for worsening of their current condition or the appearance of new urologic symptoms. Compliance is encouraged with any medications and followup testing that is ordered. It is a privilege to participate in the urologic care of your patient. If you have any questions or concerns regarding treatment for the above conditions, or other urologic issues, please do not hesitate to contact me. The office telephone contact is [phone]. This note is constructed using voice recognition software. While every effort has been made to ensure accuracy food assembler errors may have been included. Yours sincerely, Dr Derian Carrillo MD, [facility] - Urology Providers of Expert, Compassionate Care for the Genitourinary System Coding Level of Care Code Tele Est Pt Level 3 (30900) Diagnoses Cystitis N30.90
== END 2024-05-07 13:50 | disposition home or self-care (01) ==
LOC: HO.HUSH 13:02
PROVIDERS: PCP Internal Medicine; Visit Provider Urology
DX: N30.90 Cystitis, unspecified without hematuria (principal)
CPT/HCPCS: 99213

== ENCOUNTER → 2024-05-07 13:02 | Outpatient (BNVA) | payer OTHER, SELFPAY | PROVIDERS: PCP Internal Medicine; Visit Provider Urology ==